=== PATIENT | female | born 1955 | race Two or more races ===

== ENCOUNTER 2024-02-13 23:51 | Emergency (ER) | payer OTHER, MEDICAID ==
[~2024-02-13] VITALS: Ht 165.1 cm; Wt 86.4 kg
[2024-02-14 00:25] VITALS: PULSE 83; RESP 16; TEMP 98.9; O2SAT 100
[2024-02-14] MEDS ORDERED: HYDR-4902 PO (00:39)
[2024-02-14] MEDS ORDERED: AMOX875T4 PO (00:39)
--- NOTE | 2024-02-14 00:40 | ED.PDOC ---
Musculoskeletal HPI Comments 68-year-old female presents to ER with complaints of right knee pain x3 days. Patient with PMH significant for previous right knee fracture and neuropathy presents via EMS reporting she started experiencing right knee pain/swelling to right knee three days ago after hitting her right knee against a car door. She rates her current pain a 9/10 to right knee present with palpation/movement only, denying any pain at rest. Denies use of medications for current symptoms. States she is able to walk with use of a walker at home. Patient is also requesting an antibiotic prescription due to a dry cough that she has had for three weeks. Denies fever, calf pain, hip pain, shortness of breath or any further symptoms/complaints Chief Complaint: Lower Extremity Time Seen by MD: 00:07 Primary Care Provider: UNKNOWN Reviewed Notes: Nurses Notes, Medications, Allergies Allergies: Coded Allergies: NO KNOWN ALLERGIES (Unverified , 02/14/24) Home Meds Active Scripts Hydrocodone-Acetaminophen (Hydrocodone Bitartrate/AC 5-325 mg) 1 Tab Tab, 1 TAB PO Q6HPRN, #10 TAB 0 Refills Prov:ROMAIN JONES 02/14/24 Amoxicillin & Pot Clavulanate (Amoxicillin/Potassium Cla) 875 Mg Tab, 1 TAB PO BID for 7 Days, #14 TAB 0 Refills Prov:ROMAIN JONES 02/14/24 Information Source: Patient Mode of Arrival: EMS Past Medical History PAST MEDICAL HISTORY: Arthritis (RHEUMATOID) Past Medical History (Other): RIGHT KNEE FRACTURE-MARCH 2023 BRONCHITIS Surgical History: Hysterectomy Surgical History (Other): RIGHT KNEE SURGERY-MARCH 2023 Cervical spine surgery Family History Family History: Unknown Social History Smoker: Cigarettes, Less Than 1 Pack/Day Alcohol: Denies ETOH Use Drugs: Denies Drug Use Lives In: Home Constitutional: denies: chills, diaphoresis, fatigue, fever, malaise, sweats, weakness, others EENTM: denies: blurred vision, double vision, ear bleeding, ear discharge, ear drainage, ear pain, ear ringing, eye pain, eye redness, hearing loss, mouth pain, mouth swelling, nasal discharge, nose bleeding, nose congestion, nose pain, photophobia, tearing, throat pain, throat swelling, voice changes, others Respiratory: denies: cough, hemoptysis, orthopnea, SOB at rest, shortness of breath, SOB with excertion, stridor, wheezing, others Cardiovascular: denies: chest pain, dizzy spells, diaphoresis, Dyspnea on exe rtion, edema, irregular heart beat, left arm pain, lightheadedness, palpitations, PND, syncope, others Gastrointestinal: denies: abdomen distended, abdominal pain, blood streaked bowels, constipated, diarrhea, dysphagia, difficulty swallowing, hematemesis, melena, nausea, poor appetite, poor fluid intake, rectal bleeding, rectal pain, vomiting, others Genitourinary: denies: abnormal vagina bleeding, burning, dyspareunia, dysuria, flank pain, frequency, hematuria, incontinence, pain, , vagina discharge, urgency, others Neurological: reports: others (As in HPI) Musculoskeletal: reports: others (As in HPI) Integumetry: reports: others (As in HPI) Allergic/Immunocompromised: denies: Difficulty Healing, Frequent Infections, Hives, Itching, others Hematologic/Lymphatic: denies: anemia, blood clots, easy bleeding, easy bruising, swollen glands, others Endocrine: denies: excessive hunger, excessive sweating, excessive thirst, excessive urination, flushing, intolerance to cold, intolerance to heat, unexplained weight gain, unexplained weight loss, others Psychiatric: denies: anxiety, bipolar disorder, depression, hopeless, panic d isorder, schizophrenia, sleepless, suicidal, others Physical Exam General Appearance: No Apparent Distress, Obese HEENT: PERRL/EOMI Neck: Full Range of Motion, Non-Tender, Normal Respiratory: Chest Non-Tender, Lungs Clear, No Accessory Muscle Use, No Respiratory Distress, Normal Breath Sounds Cardiovascular: No Murmur, No Gallop, Regular Rate/Rhythm Breast Exam: Deferred Gastrointestinal: NOT DONE Genitalia: Deferred Pelvic: Deferred Rectal: Deferred Extremities: No calf tenderness, Normal capillary refill Musculoskeletal : Extremity Location: Knee (TTP/mild swelling noted to right anterior knee. Scar noted from previous right knee surgery. No deformity/further skin changes appreciated. No TTP to right hip noted. Pulses intact. Gait slowed with use of assistance) Neurologic: Alert, No Motor Deficits, Normal Affect, Normal Mood, No Sensory Deficits Cerebellar Function: Normal Reflexes: Normal Skin: Dry, Normal Color, Warm Peripheral Pulses: 2+ dorsalis pedis (R), 2+ dorsalis pedis (L) Lymphatic: No Adenopathy Was a procedure done? Was a procedure done?: No Sedation Sedation?: No Differential Diagnosis EXT Differential Diagnosis: Fracture, Dislocation, Neurovascular injury X-Ray, Labs, Meds, VS Vital Signs Date Time Temp Pulse Resp B/P (MAP) Pulse Ox O2 Delivery O2 Flow Rate FiO2 02/14/24 01:25 80 16 111/56 02/14/24 00:53 83 16 111/56 02/14/24 00:25 98.9 83 16 111/56 (74) 98 98.9 02/14/24 00:25 83 16 100 Room Air* 0 21 02/14/24 00:03 97.5 83 16 111/56 (74) 100 Current Medications Medications (Trade) Dose Ordered Sig/Andria Route Start Time Stop Time Status Last Admin Morphine Sulfate 2 mg ONCE ONCE IM 02/14/24 00:45 02/14/24 00:46 DC 02/14/24 00:53 Ondansetron HCl (Zofran Po) 4 mg ONCE ONCE PO 02/14/24 00:45 02/14/24 00:46 DC 02/14/24 00:52 PATIENT: MARICEL SALMONT: [id number]: [id number] : 1955 LOC: ER ROOM / BED: / AGE / SEX: 68 / F ADM STATUS: REG ER SERVICE 0002 ORDERING PHYSICIAN: ROMAIN JONES PROCEDURE(s): RKN3 - R KNEE 3V XRAY REASON: Pain and swelling ORDER NUMBER(s): [id number], ACCESSION NUMBER(s): [id number] CLINICAL INDICATION: Pain and swelling right knee TECHNIQUE: XY R KNEE 3V XRAY Comparison: None FINDINGS/IMPRESSION: There is no evidence of acute fracture or dislocation. Bony demineralization. Mild tricompartment osteoarthritis with tricompartment osteophyte formation and mild medial compartment joint space narrowing The alignment is anatomical. There is no radiopaque foreign body. ATED BY: CHILO RODRIGUEZ MD DICTATED DATE/TIME: 02/14/24201 SIGNED BY: CHILO RODRIGUEZ MD SIGNED DATE/TIME: 02/14/24 0202 CC: Right knee x-ray reviewed Patient neurovascularly intact Morphine 2 mg IM ordered Zofran 4 mg p.o. ordered Patient in no distress and reported improvement in symptoms prior to discharge Advised on use of walker at all times Advised to follow up with PCP and orthopedics in 1-2 days Patient verbalized understanding and agreeable with current plan of care Advised to return to ER immediately if symptoms worsen Images Reviewed?: Images reviewed and evaluated by me Time of 1ST Reevaluation: 00:12 Reevaluation 1ST: N/A Patient Education/Counseling: Diagnosis, Treatment, Prognosis, Need For Follow Up Family Education/Counseling: No Family Present Departure 1 Departure Time of Disposition: 00:32 Impression: Primary Impression: Contusion of right knee Qualified Codes: S80.01XA - Contusion of right knee, initial encounter Additional Impressions: Acute bronchitis Qualified Codes: J20.9 - Acute bronchitis, unspecified Arthritis of knee, right Disposition: 01 HOME / SELF CARE / HOMELESS Condition: Stable e-Prescriptions Hydrocodone-Acetaminophen (Hydrocodone Bitartrate/AC 5-325 mg) 1 Tab Tab 1 TAB PO Q6HPRN, #10 TAB 0 Refills Prov: ROMAIN JONES 02/14/24 Amoxicillin & Pot Clavulanate (Amoxicillin/Potassium Cla) 875 Mg Tab 1 TAB PO BID for 7 Days, #14 TAB 0 Refills Prov: ROMAIN JONES 02/14/24 Discharged With: Significant Other Critical Care Note Critical Care Time?: No Stability Stability form required: No Heart Score Heart Score: Heart Score Response (Comments) Value History N/A 0 EKG N/A 0 Age N/A 0 Risk Factors N/A 0 Troponin N/A 0 Total 0 ROMAIN JONES Feb 14, 2024 00:40
[2024-02-14] MEDS: ONDANSETRON ODT 4 MG TAB PO ONE (00:52)
[2024-02-14] MEDS: MORPHINE SULFATE INJ 2 MG/ml SYRG IM ONE (00:53)
[2024-02-14 01:25] VITALS: BP 111/56; PULSE 80; RESP 16
--- NOTE | 2024-02-14 02:05 | DVH ---
CLINICAL INDICATION: Pain and swelling right knee TECHNIQUE: XY R KNEE 3V XRAY Comparison: None FINDINGS/IMPRESSION: There is no evidence of acute fracture or dislocation. Bony demineralization. Mild tricompartment osteoarthritis with tricompartment osteophyte formation and mild medial compartme nt joint space narrowing The alignment is anatomical. There is no radiopaque foreign body.
== END 2024-02-14 02:10 | disposition home or self-care (01) ==
LOC: ER 23:51 → EDBD 23:51 → ER 02-14 02:10
DX: S80.01XA Contusion of right knee, initial encounter (principal); J20.9 Acute bronchitis, unspecified; M17.11 Unilateral primary osteoarthritis, right knee; F17.210 Nicotine dependence, cigarettes, uncomplicated; Z90.710 Acquired absence of both cervix and uterus; Z98.890 Other specified postprocedural states; Z79.899 Other long term (current) drug therapy; W22.8XXA Striking against or struck by other objects, initial encounter; Y93.89 Activity, other specified; Y92.89 Other specified places as the place of occurrence of the external cause; Y99.8 Other external cause status
CPT/HCPCS: 73562; 96372; 99283; J2270; Q0162

== ENCOUNTER 2024-03-10 13:38 | Inpatient (IN) | payer OTHER, MEDICAID ==
[~2024-03-10] VITALS: Ht 165.1 cm; Wt 93.2 kg
[~2024-03-10 13:38] MED LIST: AMOX875T4 PO; HYDR-4902 PO
--- NOTE | 2024-03-10 14:43 | DVH ---
XY CHEST TWO VIEWS ROUTINE CLINICAL HISTORY: cough/sob COMPARISON: None TECHNIQUE: Frontal and lateral view of the chest was obtained FINDINGS: Lines and Tubes: None Lungs: Patchy left-sided and curvilinear bilateral mid and lower lung zone pulmonary opacities. Bilat eral peribronchial cuffing. Pleura: No effusion. No pneumothorax. Cardiomediastinal contours: Unremarkable Bones: No acute osseous abnormality. IMPRESSION: 1. Findings most consistent with atypical infection versus reactive airways disease. Needs clinical c orrelation. HS:Y
[2024-03-10 15:12] LABS: Basophils # (auto) 0 10 ^3/uL (0-0.2); Basophils % (auto) 0.6 % (0.0-2.0); Eosinophils # (auto) 0.1 10 ^3/uL (0-0.8); Eosinophils % (auto) 1.9 % (0.0-7.0); Hematocrit 37.8 % (36.0-46.0); Hemoglobin 12.9 g/dL (12.2-16.2); Lymphocytes # (auto) 1.3 10 ^3/uL (0.4-5.4); Lymphocytes % (auto) 27.2 % (10.0-50.0); Mean Corpuscular Hemoglobin 31.7 pg (28.0-32.0); Mean Corpuscular Hgb Conc. 34.2 g/dL (32.0-36.0); Mean Corpuscular Volume 92.8 fL (80.0-100.0); Monocytes # (auto) 0.4 10 ^3/uL (0-1.3); Monocytes % (auto) 7.7 % (0.0-12.0); Neutrophils # (auto) 2.9 10 ^3/uL (1.6-8.6); Neutrophils % (auto) 62.6 % (37.0-80.0); Nucleated Red Blood Cells % 0.2 %; Platelet Count (auto) 174 10^3/uL (140-450); Red Blood Cells 4.07 10^6/uL (4.0-5.20); Red Cell Distribution Width 13.6 % (11.8-14.3); White Blood Cell 4.6 10^3/uL (4.4-10.8)
[2024-03-10 15:34] LABS: Alanine Aminotransferase 16 U/L (7-40); Albumin 4.1 g/dL (3.2-4.8); Alkaline Phosphatase 98 U/L (46-116); Anion Gap 6 (5-15); Aspartate Aminotransferase 19 U/L (13-40); BUN/Creatinine Ratio 14.6 (10.0-20.0); Bilirubin, Total 0.3 mg/dL (0.2-1.0); Blood Urea Nitrogen 15 mg/dL (9-23); Calcium 9.6 mg/dL (8.7-10.4); Carbon Dioxide 30 mmol/L (20-31); Chloride 103 mmol/L (98-107); Potassium 4.2 mmol/L (3.5-5.1); Sodium 139 mmol/L (136-145); Total Protein 6.4 g/dL (5.7-8.2)
[2024-03-10 15:41] LABS: Glucose 124 mg/dL (74-106)
--- NOTE | 2024-03-10 15:58 | ED.PDOC ---
SOB-HPI HPI Comments 68-year-old female with a history of asthma, gout, rheumatoid arthritis and diabetes presents with a chief complaint of a nonproductive cough, myalgia, malaise, not eating well nor feeling like her usual self for the last three days Unable to get adequate relief with home medications Denies unintentional weight loss Denies persistent chest pain, shortness of breath, leg swelling Denies history of pneumonia Denies recent international travel Chief Complaint: Cough Time Seen by MD: 15:37 Primary Care Provider: GIL Reviewed notes: Nurses Notes, Medications, Allergies Information Source: Patient Mode of Arrival: EMS Past Medical History PAST MEDICAL HISTORY: Arthritis Surgical History: Hysterectomy Family History Family History: Reviewed,noncontributory to illness, Unknown Social History Smoker: Cigarettes, Less Than 1 Pack/Day Alcohol: Denies ETOH Use Drugs: Denies Drug Use Lives In: Home All Other Systems: Reviewed and Negative (per hpi) Physical Exam General Appearance: Normal HEENT: Normal ENT Inspection, Pharynx Normal, TMs Normal Neck: Full Range of Motion, Non-Tender, Normal, Normal Inspection Respiratory: Chest Non-Tender, Lungs Clear, No Accessory Muscle Use, No Respiratory Distress, Normal Breath Sounds Cardiovascular: No Edema, No JVD, No Murmur, No Gallop, Normal Peripheral Pulses, Regular Rate/Rhythm Breast Exam: Deferred Gastrointestinal: No Organomegaly, Non Tender, No Pulsatile Mass, Normal Bowel Sounds, Soft Genitalia: Deferred Pelvic: Deferred Rectal: Deferred Extremities: No calf tenderness, Normal capillary refill, Normal inspection, Normal range of motion, Non-tender, No pedal edema Musculoskeletal : Apperance: Normal Neurologic: Alert, licensed retail supervisor II-XII nml as Tested, No Motor Deficits, Normal Affect, Normal Mood, No Sensory Deficits Cerebellar Function: Normal Reflexes: Normal Skin: Dry, Normal Color, Warm Lymphatic: No Adenopathy Was a procedure done? Was a procedure done?: No Differential Dx Differential Diagnosis: Asthma, Bronchitis, Pneumonia X-Ray, Labs, Meds, VS Vital Signs Date Time Temp Pulse Resp B/P (MAP) Pulse Ox O2 Delivery O2 Flow Rate FiO2 03/10/24 15:37 85 20 94 Room Air 03/10/24 15:37 99.0 85 20 127/79 (95) 94 99.0 03/10/24 13:38 20 100 Room Air* 0 21 03/10/24 13:38 99.0 85 20 127/79 (95) 100 Lab Test 03/10/24 14:36 Range/Units White Blood Count 4.6 4.4-10.8 10^3/uL Red Blood Count 4.07 4.0-5.20 10^6/uL Hemoglobin 12.9 12.2-16.2 g/dL Hematocrit 37.8 36.0-46.0 % Mean Corpuscular Volume 92.8 80.0-100.0 fL Mean Corpuscular Hemoglobin 31.7 28.0-32.0 pg Mean Corpuscular Hemoglobin Concent 34.2 32.0-36.0 g/dL Red Cell Distribution Width 13.6 11.8-14.3 % Platelet Count 174 140-450 10^3/uL Mean Platelet Volume 8.1 6.9-10.8 fL Neutrophils (%) (Auto) 62.6 37.0-80.0 % Lymphocytes (%) (Auto) 27.2 10.0-50.0 % Monocytes (%) (Auto) 7.7 0.0-12.0 % Eosinophils (%) (Auto) 1.9 0.0-7.0 % Basophils (%) (Auto) 0.6 0.0-2.0 % Neutrophils # (Auto) 2.9 1.6-8.6 10 ^3/uL Lymphocytes # (Auto) 1.3 0.4-5.4 10 ^3/uL Monocytes # (Auto) 0.4 0-1.3 10 ^3/uL Eosinophils # (Auto) 0.1 0-0.8 10 ^3/uL Basophils # (Auto) 0 0-0.2 10 ^3/uL Nucleated Red Blood Cells 0.2 % Sodium Level 139 136-145 mmol/L Potassium Level 4.2 3.5-5.1 mmol/L Chloride Level 103 98-107 mmol/L Carbon Dioxide Level 30 20-31 mmol/L Anion Gap 6 5-15 Blood Urea Nitrogen 15 9-23 mg/dL Creatinine 1.03 H 0.550-1.02 mg/dL Glomerular Filtration Rate Calc 59 >90 mL/min BUN/Creatinine Ratio 14.6 10.0-20.0 Serum Glucose 124 H 74-106 mg/dL Calcium Level 9.6 8.7-10.4 mg/dL Total Bilirubin 0.3 0.2-1.0 mg/dL Aspartate Amino Transferase (AST) 19 13-40 U/L Alanine Aminotransferase (ALT) 16 7-40 U/L Alkaline Phosphatase 98 46-116 U/L Troponin I High Sensitivity 4 </=34 ng/L B-Type Natriuretic Peptide 103.87 0-100 pg/mL Total Protein 6.4 5.7-8.2 g/dL Albumin 4.1 3.2-4.8 g/dL PATIENT: MARICEL SALMONT: [id number]: [id number] : 1955 LOC: ER ROOM / BED: / AGE / SEX: 68 / F ADM STATUS: REG ER SERVICE 12 ORDERING PHYSICIAN: NARCISO REED ELECTRIC FREIGHT CAR OPERATOR PROCEDURE(s): CXR2 - CHEST TWO VIEWS ROUTINE REASON: cough/sob ORDER NUMBER(s): [id number], ACCESSION NUMBER(s): [id number] XY CHEST TWO VIEWS ROUTINE CLINICAL HISTORY: cough/sob COMPARISON: None TECHNIQUE: Frontal and lateral view of the chest was obtained FINDINGS: Lines and Tubes: None Lungs: Patchy left-sided and curvilinear bilateral mid and lower lung zone pulmonary opacities. Bilateral peribronchial cuffing. Pleura: No effusion. No pneumothorax. Cardiomediastinal contours: Unremarkable Bones: No acute osseous abnormality. IMPRESSION: 1. Findings most consistent with atypical infection versus reactive airways disease. Needs clinical correlation. HS:Y ATED BY: ALICIA KELLY DO DICTATED DATE/TIME: 03/10/241440 SIGNED BY: ALICIA KELLY DO SIGNED DATE/TIME: 03/10/241440 CC: X-Ray, Labs, Meds, VS Comment 68-year-old female with a history of asthma, gout, rheumatoid arthritis and diabetes presents with a chief complaint of a nonproductive cough, myalgia, malaise, not eating well nor feeling like her usual self for the last three days History obtained from patient Labs imaging ordered and chest x-ray shows Findings most consistent with atypical infection versus reactive airways disease. Needs clinical correlation. Curb score 1 Based on age risk factors we will consult with the hospitalist for admission patient will likely be admitted for IV antibiotics Stable at this time Time of 1ST Reevaluation: 15:54 Reevaluation 1ST: Unchanged Patient Education/Counseling: Diagnosis, Treatment Family Education/Counseling: Diagnosis, Treatment Departure 1 Departure Time of Disposition: 15:56 Impression: Primary Impression: Atypical pneumonia Disposition: 09 ADMITTED INPATIENT Condition: Fair Critical Care Note Critical Care Time?: No Stability Stability form required: No Heart Score Heart Score: Heart Score Response (Comments) Value History Slightly Suspicious 0 EKG N/A 0 Age >65 2 Risk Factors 1 or 2 risk factors 1 Troponin N/A 0 Total 3 NARCISO REED ELECTRIC FREIGHT CAR OPERATOR Mar 10, 2024 15:58
[2024-03-10] MEDS ORDERED: DOCUSATE SOD 100 MG CAP PO PRN (16:15)
[2024-03-10] MEDS ORDERED: ACETAMINOPHEN 325 MG TAB PO PRN (16:15)
[2024-03-10] MEDS ORDERED: ONDANSETRON HCL 4 MG/2 ML VIAL IV PRN (16:15)
[2024-03-10] MEDS ORDERED: PROMETHAZINE-DM 5 ML ORAL SYRUP PO PRN (16:15)
--- NOTE | 2024-03-10 16:35 | DVHHP2 ---
History of Present Illness Reason for Visit: Atypical pneumonia History of Present Illness The patient is a 68-year-old female with past medical history of arthritis, gout, DM, RA, and neuropathy who presented to [facility] ED with complaint of nonproductive cough. Patient reports symptoms progressively get worse with malaise, weakness, unrelieved with home medication, getting worse today that prompted this visit. Patient was seen and evaluated in the ED, laboratory data shows WBC 4.6, platelets 174, sodium 139, potassium 4.2, BUN 15, creatinine 1.03, glucose 124, BNP 103.87, troponin 4, blood pressure 127/79, heart rate 85, temperature 99.0 F, O2 saturation 99% room air. Chest x-ray revealing atypical infection versus reactive airway disease, need clinical correlation. Please see medication orders section in the computer. On my assessment, patient denied chest pain, no headache, no dizziness, no diaphoresis, no shortness of breaths, no nausea, no vomiting, no fever, no chills. Patient was admitted for further evaluation and medical management. Past Medical History Arthritis, gout, DM, rheumatoid arthritis, neuropathy. Past Surgical History Hysterectomy, multiple bilateral leg surgery, section. Family History Reviewed, noncontributory to the management of this case. Past Social History The patient lives at home, smokes cigarettes less than 1 pack per day, denies alcohol or illicit drugs abuse. Review of Systems Constitutional: Yes: Weakness, Malaise; No: Fever, Chills, Sweats, Other Eyes: No: Pain, Vision change, Conjunctivae inflammation, Eyelid inflammation, Other, Redness ENT: No: Ear pain, Ear discharge, Nose pain, Nose discharge, Nose congestion, Mouth pain, Mouth swelling, Throat pain, Throat swelling, Other Respiratory: Cough (Nonproductive); No: Dry, Shortness of breath, SOB with excertion, Wheezing, Hemoptysis, Pleuritic Pain, Sputum, Wheezing, Other Cardiovascular: No: Chest Pain, Palpitations, Orthopnea, Paroxysmal Noc. Dyspnea, Edema, Lt Headedness, Other Gastrointestinal: No: Nausea, Vomiting, Abdominal Pain, Diarrhea, Constipation, Melena, Hematochezia, Other Genitourinary: No Dysuria, No Frequency, No Incontinence, No Hematuria, No Retention, No Other Musculoskeletal: No: other, neck pain, shoulder pain, arm pain, back pain, hand pain, leg pain, foot pain Skin: No: Rash, Lesions, Jaundice, Bruising, Other Neurological: No: Weakness, Numbness, Incoordination, Change in speech, Confusion, Seizures, Other Allergies: Coded Allergies: NO KNOWN ALLERGIES (Unverified , 02/14/24) Medications Current Medications Medications Dose Ordered Sig/Andria Route Start Time Stop Time Status Last Admin Dose Admin Azithromycin 250 ml @ 125 mls/hr DAILY IV 03/11/24 10:00 Future Hold Promethazine HCl/ Dextromethorphan 5 ml Q4HP PRN PO 03/10/24 16:15 Famotidine 20 mg DAILY IV 03/11/24 10:00 Sodium Chloride 1,000 ml @ 60 mls/hr [id number] IV 03/10/24 16:15 Acetaminophen/ Hydrocodone Bitart 1 tab Q4HP PRN PO 03/10/24 16:15 Ondansetron HCl 4 mg Q4HP PRN IV 03/10/24 16:15 Docusate Sodium 100 mg BIDPRN PRN PO 03/10/24 16:15 Acetaminophen 650 mg Q6HP PRN PO 03/10/24 16:15 Exam Vital Signs Vital Signs Date Time Temp Pulse Resp B/P (MAP) Pulse Ox O2 Delivery O2 Flow Rate FiO2 03/10/24 15:37 85 20 94 Room Air 03/10/24 15:37 99.0 127/79 (95) 99.0 03/10/24 13:38 0 21 General Appearance: Alert, Oriented X3, Cooperative, No acute distress HEENT: Atraumatic, PERRLA, EOMI, Mucous membr. moist/pink Respiratory: Normal air movement, Other (Diminished breath sounds) Cardiovascular: Regular rate, Normal S1, Normal S2, No murmurs Abdominal: Normal bowel sounds, Soft, No tenderness, No hepatospenomegaly, No masses Extremities: No clubbing, No cyanosis, No edema, Normal pulses, No tenderness/swelling Skin: No rashes, No breakdown, No significant lesion Neuro: Normal speech, Normal tone, Sensation intact, Cranial nerves 3-12 NL, Reflexes 2+, Other (Generalized weakness) Psych/Mental Status: Mental status NL, Mood NL Labs/Xrays Labs Test 03/10/24 14:36 Range/Units White Blood Count 4.6 4.4-10.8 10^3/uL Red Blood Count 4.07 4.0-5.20 10^6/uL Hemoglobin 12.9 12.2-16.2 g/dL Hematocrit 37.8 36.0-46.0 % Mean Corpuscular Volume 92.8 80.0-100.0 fL Mean Corpuscular Hemoglobin 31.7 28.0-32.0 pg Mean Corpuscular Hemoglobin Concent 34.2 32.0-36.0 g/dL Red Cell Distribution Width 13.6 11.8-14.3 % Platelet Count 174 140-450 10^3/uL Mean Platelet Volume 8.1 6.9-10.8 fL Neutrophils (%) (Auto) 62.6 37.0-80.0 % Lymphocytes (%) (Auto) 27.2 10.0-50.0 % Monocytes (%) (Auto) 7.7 0.0-12.0 % Eosinophils (%) (Auto) 1.9 0.0-7.0 % Basophils (%) (Auto) 0.6 0.0-2.0 % Neutrophils # (Auto) 2.9 1.6-8.6 10 ^3/uL Lymphocytes # (Auto) 1.3 0.4-5.4 10 ^3/uL Monocytes # (Auto) 0.4 0-1.3 10 ^3/uL Eosinophils # (Auto) 0.1 0-0.8 10 ^3/uL Basophils # (Auto) 0 0-0.2 10 ^3/uL Nucleated Red Blood Cells 0.2 % Sodium Level 139 136-145 mmol/L Potassium Level 4.2 3.5-5.1 mmol/L Chloride Level 103 98-107 mmol/L Carbon Dioxide Level 30 20-31 mmol/L Anion Gap 6 5-15 Blood Urea Nitrogen 15 9-23 mg/dL Creatinine 1.03 H 0.550-1.02 mg/dL Glomerular Filtration Rate Calc 59 >90 mL/min BUN/Creatinine Ratio 14.6 10.0-20.0 Serum Glucose 124 H 74-106 mg/dL Calcium Level 9.6 8.7-10.4 mg/dL Total Bilirubin 0.3 0.2-1.0 mg/dL Aspartate Amino Transferase (AST) 19 13-40 U/L Alanine Aminotransferase (ALT) 16 7-40 U/L Alkaline Phosphatase 98 46-116 U/L Troponin I High Sensitivity 4 </=34 ng/L B-Type Natriuretic Peptide 103.87 0-100 pg/mL Total Protein 6.4 5.7-8.2 g/dL Albumin 4.1 3.2-4.8 g/dL PATIENT: JAIR SALMON ACCT: [id number] UNIT: [id number] : 1955 LOC: ER ROOM / BED: / AGE / SEX: 68 / F ADM STATUS: REG ER SERVICE 1413 ORDERING PHYSICIAN: NARCISO REED NP PROCEDURE(s): CXR2 - CHEST TWO VIEWS ROUTINE REASON: cough/sob ORDER NUMBER(s): [id number], ACCESSION NUMBER(s): [id number] XY CHEST TWO VIEWS ROUTINE CLINICAL HISTORY: cough/sob COMPARISON: None TECHNIQUE: Frontal and lateral view of the chest was obtained FINDINGS: Lines and Tubes: None Lungs: Patchy left-sided and curvilinear bilateral mid and lower lung zone pulmonary opacities. Bilateral peribronchial cuffing. Pleura: No effusion. No pneumothorax. Cardiomediastinal contours: Unremarkable Bones: No acute osseous abnormality. IMPRESSION: 1. Findings most consistent with atypical infection versus reactive airways disease. Needs clinical correlation. Assessment/Plan Assessment/Plan Atypical pneumonia Nonproductive cough Generalized weakness Plan 1. Admit to telemetry unit 2. Breathing treatment 3. Pain control management 4. IV antibiotic management 5. Management of fluids and electrolytes 6. Consultation for pulmonology 7. Diagnostic test chest x-ray 8. DVT prophylaxis-on SCDs 9. Repeat labs CBC, CMP in a.m. 10. Home medication reviewed and reconciled 11. Continue with current medical management 12. Treatment plan discussed with patient and RN. Patient verbalized understanding. Plan discussed with: Patient, Other (RN) My Orders Orders - SHELBIE WHITTINGTON DNP Procedure Category Date Status Time Azithromycin 500mg/ PHA 03/10/24 In Process 250ml (Zithromax 50 16:15 Promethazine-Dm PHA 03/10/24 In Process (Phenergan-Dm) 16:15 *Consult CONS 03/10/24 Transmitted / 16:05 Famotidine Injection PHA 03/11/24 In Process (Pepcid Injection) 10:00 Allergies [facility] 03/10/24 In Process 16:05 Code Status CODE 03/10/24 Transmitted 16:05 Sodium Chloride 0.9% PHA 03/10/24 In Process 16:15 Oxygen Per Hour RT 03/10/24 Transmitted 16:05 Hydrocodone-Acet PHA 03/10/24 In Process 5/325mg Tab ([place] 16:15 Ondansetron Hcl PHA 03/10/24 In Process (Zofran) 16:15 Docusate Sodium PHA 03/10/24 In Process Capsule (Colace 16:15 Complete Blood Count LAB 03/11/24 Verified 04:00 Comprehensive LAB 03/11/24 Verified Metabolic Panel 04:00 Cardiac DIET 03/10/24 Transmitted Diet-2gna,Lofat,Lochol Dinner Condition: Fair [place] 03/10/24 In Process 16:05 Acetaminophen Tablet PHA 03/10/24 In Process (Tylenol Tablet) 16:15 Bedrest With Bathroom [facility] 03/10/24 In Process Privileg 16:05 Sequential [facility] 03/10/24 In Process Compression Device Azithromycin 500mg/ PHA 03/11/24 In Process 250ml (Zithromax 50 10:00 Admit ADMIT 03/10/24 Verified 16:33 Nitroglycerin [facility] 03/10/24 Verified Sublingual (Ntrostat 16:45 Morphine Sulfate [facility] 03/10/24 Verified Injection 16:45 Notify Md Of Changes [facility] 03/10/24 Verified From Base 16:33 Instructor Hairspring For [facility] 03/10/24 Verified 24 Hours 16:33 Emergency Dysrhythmia [facility] 03/10/24 Verified Protocol 16:33 Rhythm Strips Once [facility] 03/10/24 Verified Every Shift 16:33 Oxygen By Nasal RT 03/10/24 Verified Cannula 16:33 Problem List: (1) Atypical pneumonia (2) Nonproductive cough (3) Generalized weakness Date of Service: Mar 10, 2024 Billing Provider: SHELBIE WHITTINGTON DNP Common Visit Codes: [id number] INP/OBS CARE (HIGH) SHELBIE WHITTINGTON DNP Mar 10, 2024 16:35
[2024-03-10] MEDS ORDERED: MORPHINE SULFATE INJ 2 MG/ml SYRG IV PRN (16:45)
[2024-03-10] MEDS ORDERED: NITROGLYCERIN 0.4 MG SL TAB SL PRN (16:45)
[2024-03-10] MEDS: FAMOTIDINE (10MG/ML) 2ML VL IV ONE (17:25)
[2024-03-10] MEDS: DexAMETHasone SOD PHOS 10MG/1ML VIAL INJ IM ONE (17:26)
[2024-03-10] MEDS: cefTRIAXone SOD 1,000 MG VL IM ONE (17:26)
[2024-03-10] MEDS: SODIUM CHLORIDE 0.9% 1,000 ML IV SCH (17:27)
[2024-03-10] MEDS: PROMETHAZINE-DM 5 ML ORAL SYRUP PO ONE (17:27)
[2024-03-10] MEDS: AZITHROMYCIN 500MG/ 250ML 250 ML IV ONE (17:27)
--- NOTE | 2024-03-10 19:21 | DVHINCON2 ---
Date of service: Mar 10, 2024 Referring Physician Dileep Randolph DNP Reason for Consultation Atypical infection versus airways disease. History of Present Illness A 68-year-old woman with past medical history of arthritis, gout, DM, rheumatoid arthritis, and neuropathy who presents to ED today with complaint of nonproductive cough. Patient reports symptoms progressively got worse with malaise, weakness, unrelieved with home medication, getting worse today that prompted this visit. ED workup revealed WBC 4.6, platelets 174, sodium 139, potassium 4.2, BUN 15, creatinine 1.03, glucose 124, BNP 103.87, troponin 4. Blood pressure of 127/79, heart rate 85, temperature 99.0 F, O2 saturation 99% room air. Chest x-ray revealing atypical infection versus reactive airway disease. Patient denied chest pain, headache, dizziness, diaphoresis, shortness of breath, fever, N/V or any other associated symptoms. She was admitted for further care and pulmonary consultation is requested for evaluation and management d/t above findings. Review of Systems: 14-point review of systems negative unless otherwise noted above. Past Medical History: Arthritis, gout, DM, rheumatoid arthritis, neuropathy. Past Surgical History: Hysterectomy, multiple bilateral leg surgeries, section. Medications: Reviewed. Allergies: No known drug allergies. Family History: No family history of premature CAD. No family history of lung disorders. Social History: Smoker. Smokes cigarettes, less than 1 pack per day No alcohol or illicit drug use. Allergies: Coded Allergies: Gabapentin (Verified Allergy, Mild, 03/11/24) Pregabalin (Verified Allergy, Mild, 03/11/24) Home Meds Active Scripts Hydrocodone-Acetaminophen (Hydrocodone Bitartrate/AC 5-325 mg) 1 Tab Tab, 1 TAB PO Q6HPRN, #10 TAB 0 Refills Prov:ROMAIN JONES 02/14/24 Reported Medications Fluoxetine HCl (Fluoxetine) 60 Mg Tab, 60 MG PO, TAB 03/12/24 Furosemide (Lasix) 40 Mg Tab, 40 MG PO DAILY, TAB 03/12/24 Quetiapine Fumerate (Seroquel Xr) 50 Mg Tab, 1 TAB PO QPM, #30 TAB 2 Refills 03/12/24 Current Medications Current Medications Medications (Trade) Dose Ordered Sig/Andria Route PRN Reason Start Time Stop Time Status Last Admin Azithromycin 250 ml @ 125 mls/hr DAILY IV 12/10/24 10:00 Future Hold Promethazine HCl/ Dextromethorphan (Phenergan-Dm) 5 ml Q4HP PRN PO FOR COUGH 03/10/24 16:15 Famotidine (Pepcid Injection) 20 mg DAILY IV 03/11/24 10:00 Sodium Chloride 1,000 ml @ 60 mls/hr [id number] IV 03/10/24 16:15 03/10/24 17:27 Acetaminophen/ Hydrocodone Bitart ([place] 5/325MG Tab) 1 tab Q4HP PRN PO MODERATE PAIN (4-6 PAIN SCALE) 03/10/24 16:15 Ondansetron HCl (Zofran) 4 mg Q4HP PRN IV NAUSEA / VOMITING 03/10/24 16:15 Docusate Sodium (Colace Capsule) 100 mg BIDPRN PRN PO FOR CONSTIPATION 03/10/24 16:15 Acetaminophen (Tylenol Tablet) 650 mg Q6HP PRN PO PAIN SCALE 1-3 OR TEMP>100.4 03/10/24 16:15 Nitroglycerin (Ntrostat Sublingual) 0.4 mg Q5MINP PRN SL FOR CHEST PAIN 03/10/24 16:45 Morphine Sulfate 2 mg Q30M PRN IV FOR CHEST PAIN 03/10/24 16:45 Vital Signs Vital Signs Date Time Temp Pulse Resp B/P (MAP) Pulse Ox O2 Delivery O2 Flow Rate FiO2 03/10/24 15:37 85 20 94 Room Air 03/10/24 15:37 99.0 127/79 (95) 99.0 03/10/24 13:38 0 21 Physical Exam Gen.: Patient lying in bed in no apparent distress. Breathing on room air. Head: Normocephalic, atraumatic. Eyes: EOMI/PERRLA. Ears: Normal hearing. Normal anatomy. Neck/trachea: Trachea midline, supple. Nose: Normal external anatomy. Mouth: Moist mucous membranes. Chest: Decreased air entry bilaterally. No wheezing or rhonchi. Cardiovascular: Positive S1, positive S2. Regular rate and rhythm. Abdomen: Positive bowel sounds in all 4 quadrants. Soft, non-tender, non- distended. : Deferred. Rectal: Deferred. Skin: Warm, dry. Intact. Extremities: 2+ radial pulses bilaterally. No lower extremity edema. Neuro: Awake, alert, oriented x3. No gross motor or sensory deficits. Cranial nerves II through XII intact. Gait not assessed. Labs/Diagnostic Data Labs Test 03/10/24 14:36 Range/Units White Blood Count 4.6 4.4-10.8 10^3/uL Red Blood Count 4.07 4.0-5.20 10^6/uL Hemoglobin 12.9 12.2-16.2 g/dL Hematocrit 37.8 36.0-46.0 % Mean Corpuscular Volume 92.8 80.0-100.0 fL Mean Corpuscular Hemoglobin 31.7 28.0-32.0 pg Mean Corpuscular Hemoglobin Concent 34.2 32.0-36.0 g/dL Red Cell Distribution Width 13.6 11.8-14.3 % Platelet Count 174 140-450 10^3/uL Mean Platelet Volume 8.1 6.9-10.8 fL Neutrophils (%) (Auto) 62.6 37.0-80.0 % Lymphocytes (%) (Auto) 27.2 10.0-50.0 % Monocytes (%) (Auto) 7.7 0.0-12.0 % Eosinophils (%) (Auto) 1.9 0.0-7.0 % Basophils (%) (Auto) 0.6 0.0-2.0 % Neutrophils # (Auto) 2.9 1.6-8.6 10 ^3/uL Lymphocytes # (Auto) 1.3 0.4-5.4 10 ^3/uL Monocytes # (Auto) 0.4 0-1.3 10 ^3/uL Eosinophils # (Auto) 0.1 0-0.8 10 ^3/uL Basophils # (Auto) 0 0-0.2 10 ^3/uL Nucleated Red Blood Cells 0.2 % Sodium Level 139 136-145 mmol/L Potassium Level 4.2 3.5-5.1 mmol/L Chloride Level 103 98-107 mmol/L Carbon Dioxide Level 30 20-31 mmol/L Anion Gap 6 5-15 Blood Urea Nitrogen 15 9-23 mg/dL Creatinine 1.03 H 0.550-1.02 mg/dL Glomerular Filtration Rate Calc 59 >90 mL/min BUN/Creatinine Ratio 14.6 10.0-20.0 Serum Glucose 124 H 74-106 mg/dL Calcium Level 9.6 8.7-10.4 mg/dL Total Bilirubin 0.3 0.2-1.0 mg/dL Aspartate Amino Transferase (AST) 19 13-40 U/L Alanine Aminotransferase (ALT) 16 7-40 U/L Alkaline Phosphatase 98 46-116 U/L Troponin I High Sensitivity 4 </=34 ng/L B-Type Natriuretic Peptide 103.87 0-100 pg/mL Total Protein 6.4 5.7-8.2 g/dL Albumin 4.1 3.2-4.8 g/dL Assessment Impression: Atypical pneumonia Cough, acute Generalized weakness Nicotine dependence Atelectasis Obesity, BMI 31.7 Rheumatoid arthritis Plan: Supplemental oxygen PRN Titrate to keep O2 sats above 92%. CXR reviewed, findings c/w atypical infection versus reactive airways disease. No pleural effusion or pneumothorax. Continue IV antibiotics Antitussive for cough Accu-Cheks for glycemic monitoring IV fluid hydration - NS at 60 ml/hr Smoking cessation discussed for greater than 10 minutes. Monitor renal function. Monitor electrolytes. Supplement as necessary. Monitor ins and outs. Diet and lifestyle modifications for weight reduction Obesity - complicates all care GI prophylaxis - Pepcid DVT prophylaxis -SCDs. Prognosis: Guarded given patient's multiple co-morbidities. Rest of plan per hospitalist and other consultants. Thank you, Dileep Randolph DNP, for allowing me to participate in this patient's care. Further recommendations will depend on the patient's clinical course. Please do not hesitate to contact me if you have any questions or concerns. This medical document was created using an electronic medical record system with [employer] dictation system. Although these documentations are being carefully reviewed, there may still be some phonetic and typographical changes. The errors are purely typographical, due to imperfection on the software program, and do not reflect any compromise in the patient's medical care. Plan discussed with: Patient, Other (RN, CAPRI Randolph) BREANNE SPAULDING MD Mar 10, 2024 19:21
[2024-03-10] MEDS ORDERED: DEXTROSE (50%) 50ML SYRG IV PRN (19:30)
[2024-03-10 20:30] VITALS: BP 163/64; PULSE 82; RESP 20; TEMP 99; O2SAT 94
[2024-03-10] MEDS: InsuLIN REG 1unit/0.01ml Soln (100units/ml) SC SCH (22:00)
[2024-03-10] MEDS: ACCU-CHEK COMFORT CURVE STRIP VI SCH (22:37)
[2024-03-10 22:55] VITALS: BP 154/68; PULSE 75; RESP 18; TEMP 98.1; O2SAT 97
[2024-03-11] VITALS (9 sets, daily range): BP systolic 105–168; BP diastolic 58–73; PULSE 64–98; RESP 16–20; TEMP 97.8–98.7; O2SAT 94–97
[2024-03-11 05:23] LABS: Basophils # (auto) 0 10 ^3/uL (0-0.2); Basophils % (auto) 0.4 % (0.0-2.0); Eosinophils # (auto) 0 10 ^3/uL (0-0.8); Hematocrit 37.2 % (36.0-46.0); Hemoglobin 12.6 g/dL (12.2-16.2); Lymphocytes # (auto) 1.8 10 ^3/uL (0.4-5.4); Lymphocytes % (auto) 45.5 % (10.0-50.0); Mean Corpuscular Hemoglobin 31.7 pg (28.0-32.0); Mean Corpuscular Volume 93.2 fL (80.0-100.0); Monocytes # (auto) 0.1 10 ^3/uL (0-1.3); Monocytes % (auto) 3.8 % (0.0-12.0); Neutrophils % (auto) 50.3 % (37.0-80.0); Nucleated Red Blood Cells % 0.3 %; Platelet Count (auto) 167 10^3/uL (140-450); Red Blood Cells 3.99 10^6/uL (4.0-5.20); Red Cell Distribution Width 13.5 % (11.8-14.3)
[2024-03-11 05:40] LABS: Alanine Aminotransferase 12 U/L (7-40); Alkaline Phosphatase 91 U/L (46-116); Anion Gap 7 (5-15); Aspartate Aminotransferase 20 U/L (13-40); BUN/Creatinine Ratio 12.6 (10.0-20.0); Bilirubin, Total 0.3 mg/dL (0.2-1.0); Blood Urea Nitrogen 14 mg/dL (9-23); Calcium 9.5 mg/dL (8.7-10.4); Carbon Dioxide 27 mmol/L (20-31); Chloride 102 mmol/L (98-107); Potassium 4.2 mmol/L (3.5-5.1); Sodium 136 mmol/L (136-145); Total Protein 6.6 g/dL (5.7-8.2)
[2024-03-11 05:53] LABS: Glucose 287 mg/dL (74-106)
[2024-03-11] MEDS ORDERED: AZITHROMYCIN 500MG/ 250ML 250 ML IV SCH (10:00)
[2024-03-11] MEDS: FAMOTIDINE (10MG/ML) 2ML VL IV SCH (10:24)
[2024-03-11] MEDS: ALBUTEROL SULF 2.5 MG/0.5ML(0.5%) NEB SOLN NEB PRN (12:31)
--- NOTE | 2024-03-11 12:48 | DVH ---
Procedure: CT CHEST WITHOUT CONTRAST Reason for study/Clinical History: 68 years old, Female; evaluate extent of Chronic interstitial jh g disease, hx RA. Comparison Study: None available at time of dictation. Exam Date: 03/11/2024 12:12 PM TECHNIQUE: Multidetector CT of the chest was performed from the lung apices to the upper abdomen with out the use of intravenous contract. Axial, coronal and sagittal multiplanar reformats were performed . Radiation dose Information: CT Dose: CTDI volume is 13.32 mGy. Dose-length product is 460.48 mGy*cm The dose indicators for CT are the volume computed Tomography (CT) dose Index (CTDIvol) and the dose Length product (DLP), and are measured in units of mGy and mGy-cm, respectively. These indicators are not patient dose, but values generated from the CT scanner acquisition factors. The report includes radiation exposure data for exposures received during this examination. FINDINGS: Lower neck: Normal thyroid. Lungs: Nodular consolidation in the left upper lung measuring up to 21 mm. Peribronchial thickening i n both lungs. Thin-walled cavitary lesion or cyst in the left lower lobe measuring up to 10 mm. 6 mm nodule along the right minor fissure. Atelectasis and scarring in the lung bases. Heart/Vascular Structures: Normal heart size. No pericardial effusion. Moderate coronary artery calci fications. Lymph Nodes: Subcentimeter mediastinal lymph nodes. Pleura: No pleural effusion or significant pneumothorax. Musculoskeletal: Advanced degenerative changes in the spine. Soft tissues: Normal. Upper abdomen: Limited portions of the upper abdomen are unremarkable. IMPRESSION: 1. Nodular consolidation in the left upper lobe measuring up to 21 mm. Differential includes infecti ous / inflammatory and neoplastic etiologies. Clinical correlation and continued follow-up is recomm ended. If there is high clinical concern consider further evaluation PET-CT and/ or CT-guided biopsy. Chronic parenchymal changes suggesting mild interstitial lung disease. Radiation optimization: All CT scans at this facility use at least one of these dose optimization edward hniques: Automated exposure control mA and/or kV adjustment per patient size (includes targeted exams where dose is matched to clinical indication) or iterative reconstruction. HS:Y
--- NOTE | 2024-03-11 13:40 | DVHPN2 ---
Reviewed: Care Plan, H&P, Labs, Medications, Previous Orders, Radiology Changes from previous H/P or p: No Changes Eyes: No Pain, No Vision change, No Conjunctivae inflammation, No Eyelid inflammation, No Other, No Redness ENT: No Ear pain, No Ear discharge, No Nose pain, No Nose discharge, No Nose congestion, No Mouth pain, No Mouth swelling, No Throat pain, No Throat swelling, No Other Cardiovascular: No Chest Pain, No Palpitations, No Orthopnea, No Paroxysmal Noc. Dyspnea, No Edema, No Lt Headedness, No Other Respiratory: Cough (Nonproductive); No Dry, No Shortness of breath, No SOB with excertion, No Wheezing, No Hemoptysis, No Pleuritic Pain, No Sputum, No Other Gastrointestinal: No Nausea, No Vomiting, No Abdominal Pain, No Diarrhea, No Constipation, No Melena, No Hematochezia, No Other Genitourinary: No Dysuria, No Frequency, No Incontinence, No Hematuria, No Retention, No Other Musculoskeletal: No other, No neck pain, No shoulder pain, No arm pain, No back pain, No hand pain, No leg pain, No foot pain Skin: No Rash, No Lesions, No Jaundice, No Bruising, No Other Objective Vitals Vital Signs Date Time Temp Pulse Resp B/P (MAP) Pulse Ox O2 Delivery O2 Flow Rate FiO2 03/11/24 12:53 98.7 98 20 162/66 97 21 98.7 03/11/24 12:32 Room Air* 0 Medications Current Medications Medications Dose Ordered Sig/Andria Route Start Time Stop Time Status Last Admin Dose Admin Azithromycin 250 ml @ 125 mls/hr DAILY IV 03/11/24 10:00 Hold Promethazine HCl/ Dextromethorphan 5 ml Q4HP PRN PO 03/10/24 16:15 Famotidine 20 mg DAILY IV 03/11/24 10:00 03/11/24 10:24 20 MG Sodium Chloride 1,000 ml @ 60 mls/hr [id number] IV 03/10/24 16:15 03/11/24 08:55 60 MLS/HR Acetaminophen/ Hydrocodone Bitart 1 tab Q4HP PRN PO 03/10/24 16:15 Ondansetron HCl 4 mg Q4HP PRN IV 03/10/24 16:15 Docusate Sodium 100 mg BIDPRN PRN PO 03/10/24 16:15 Acetaminophen 650 mg Q6HP PRN PO 03/10/24 16:15 Nitroglycerin 0.4 mg Q5MINP PRN SL 03/10/24 16:45 Morphine Sulfate 2 mg Q30M PRN IV 03/10/24 16:45 Diagnostic Test (Pha) 1 strip ACHS 03/10/24 22:00 03/11/24 06:45 1 STRIP Insulin Human Regular ACHS SC 03/10/24 22:00 Dextrose 50 ml UD PRN IV 03/10/24 19:30 Albuterol 2.5 mg Q6HPRN PRN NEB 03/11/24 12:00 03/11/24 12:31 2.5 MG Laboratory Results Laboratory Tests 03/11/24 04:45 Chemistry Test 03/10/24 14:36 03/11/24 04:45 Albumin 4.1 g/dL (3.2-4.8) 4.0 g/dL (3.2-4.8) Calcium Level 9.6 mg/dL (8.7-10.4) 9.5 mg/dL (8.7-10.4) Total Protein 6.4 g/dL (5.7-8.2) 6.6 g/dL (5.7-8.2) Cardiac Markers Test 03/10/24 14:36 B-Type Natriuretic Peptide 103.87 pg/mL (0-100) LFT Test 03/10/24 14:36 03/11/24 04:45 Alanine Aminotransferase (ALT) 16 U/L (7-40) 12 U/L (7-40) Alkaline Phosphatase 98 U/L (46-116) 91 U/L (46-116) Aspartate Amino Transferase (AST) 19 U/L (13-40) 20 U/L (13-40) Total Bilirubin 0.3 mg/dL (0.2-1.0) 0.3 mg/dL (0.2-1.0) Labs and/or images reviewed: Labs reviewed by me, Image(s) reviewed by me Assessment/Plan Assessment/Plan Atypical pneumonia: Rocephin azithromycin albuterol Atrovent, pulmonary consult by Dr. Pinto appreciated Nonproductive cough Generalized weakness Nicotine dependence Check flu test Check Stefanie test History of gout History of rheumatoid arthritis Diabetes Time spent 45 minutes Plan discussed with: Patient My Orders Orders - UZMA MCLAIN MD Procedure Category Date Status Time Covid19 Antigen [facility] LAB 03/11/24 Logged Rapid Influenza A&B LAB 03/11/24 Logged 13:38 Date of Service: Mar 11, 2024 Billing Provider: UZMA MCLAIN MD Common Visit Codes: [id number] INP/OBS CARE(HIGH) UZMA MCLAIN MD Mar 11, 2024 13:40
[2024-03-11] MEDS: HYDROcodone-ACET 5/325MG TAB PO PRN (14:41)
[2024-03-11] MEDS: cefTRIAXone 1GM/50ML D5W 50 ML IV ONE (15:10)
[2024-03-11] MEDS: AZITHROMYCIN 500MG/ 250ML 250 ML IV ONE (15:31)
--- NOTE | 2024-03-11 22:52 | DVHPN2 ---
Progress Note - Dictate Date Seen: Mar 11, 2024 Medical Necessity Reason Pt with a Central, PICC or Fol: No Subjective Patient seen and examined at bedside. Breathing comfortably on room air. Overnight events reviewed. vital signs Vital Sign Date Time Temp Pulse Resp B/P (MAP) Pulse Ox O2 Delivery O2 Flow Rate FiO2 03/11/24 21:25 98.2 95 20 118/63 (81) 95 98.2 03/11/24 12:53 21 03/11/24 12:32 Room Air* 0 medications Current Medications Medications Dose Ordered Sig/Andria Route Start Time Stop Time Status Last Admin Dose Admin Azithromycin 250 ml @ 125 mls/hr DAILY IV 03/11/24 10:00 Cancel Promethazine HCl/ Dextromethorphan 5 ml Q4HP PRN PO 03/10/24 16:15 Famotidine 20 mg DAILY IV 03/11/24 10:00 03/11/24 10:24 20 MG Sodium Chloride 1,000 ml @ 60 mls/hr [id number] IV 03/10/24 16:15 03/11/24 08:55 60 MLS/HR Acetaminophen/ Hydrocodone Bitart 1 tab Q4HP PRN PO 03/10/24 16:15 03/11/24 14:41 1 TAB Ondansetron HCl 4 mg Q4HP PRN IV 03/10/24 16:15 Docusate Sodium 100 mg BIDPRN PRN PO 03/10/24 16:15 Acetaminophen 650 mg Q6HP PRN PO 03/10/24 16:15 Nitroglycerin 0.4 mg Q5MINP PRN SL 03/10/24 16:45 Morphine Sulfate 2 mg Q30M PRN IV 03/10/24 16:45 Diagnostic Test (Pha) 1 strip ACHS 03/10/24 22:00 03/11/24 22:11 1 STRIP Insulin Human Regular ACHS SC 03/10/24 22:00 Dextrose 50 ml UD PRN IV 03/10/24 19:30 Albuterol 2.5 mg Q6HPRN PRN NEB 03/11/24 12:00 03/11/24 12:31 2.5 MG Ceftriaxone Sodium 50 ml @ 100 mls/hr DAILY@09 IV 03/12/24 09:00 Azithromycin 250 ml @ 125 mls/hr DAILY IV 03/12/24 10:00 objective Gen.: Patient lying in bed in no apparent distress. Breathing on room air. Head: Normocephalic, atraumatic. Eyes: EOMI/PERRLA. Ears: Normal hearing. Normal anatomy. Neck/trachea: Trachea midline, supple. Nose: Normal external anatomy. Mouth: Moist mucous membranes. Chest: Decreased air entry bilaterally. No wheezing or rhonchi. Cardiovascular: Positive S1, positive S2. Regular rate and rhythm. Abdomen: Positive bowel sounds in all 4 quadrants. Soft, non-tender, non- distended. : Deferred. Rectal: Deferred. Skin: Warm, dry. Intact. Extremities: 2+ radial pulses bilaterally. No lower extremity edema. Neuro: Awake, alert, oriented x3. No gross motor or sensory deficits. Cranial nerves II through XII intact. Gait not assessed. laboratory and microbiology Laboratory Tests 03/11/24 04:45 Test 03/11/24 04:45 Range/Units Serum Glucose 287 H 74-106 mg/dL Assessment/Plan Impression: Atypical pneumonia Cough, acute Generalized weakness Nicotine dependence Atelectasis Obesity, BMI 31.7 Events: Breathing on room air No respiratory distress. Continue bronchodilators Continue antibiotics Incentive spirometry Pain control Avoid oversedation IV fluids w/ NS at 60 ml/hr. Pepcid for GI prophylaxis. Labs and imaging reviewed. Rest of plan as noted below. Plan: Supplemental oxygen PRN Titrate to keep O2 sats above 92%. CXR reviewed, findings c/w atypical infection versus reactive airways disease. No pleural effusion or pneumothorax. Continue IV antibiotics Antitussive for cough Accu-Cheks for glycemic monitoring IV fluid hydration - NS at 60 ml/hr Smoking cessation discussed for greater than 10 minutes. Monitor renal function. Monitor electrolytes. Supplement as necessary. Monitor ins and outs. GI prophylaxis - Pepcid DVT prophylaxis -SCDs. Prognosis: Guarded given patient's multiple co-morbidities. Rest of plan per hospitalist and other consultants. Thank you, Dileep Randolph DNP, for allowing me to participate in this patient's care. Further recommendations will depend on the patient's clinical course. Please do not hesitate to contact me if you have any questions or concerns. This medical document was created using an electronic medical record system with [email or web address] dictation system. Although these documentations are being carefully reviewed, there may still be some phonetic and typographical changes. The errors are purely typographical, due to imperfection on the software program, and do not reflect any compromise in the patient's medical care. Plan discussed with: Patient, Other (REJI Grace) BREANNE SPAULDING MD Mar 11, 2024 22:52
[2024-03-12] VITALS (13 sets, daily range): BP systolic 122–161; BP diastolic 50–74; PULSE 54–75; RESP 16–20; TEMP 97.7–98.9; O2SAT 90–99
[2024-03-12] MEDS ORDERED: QUET50TA5 PO (00:15)
[2024-03-12] MEDS ORDERED: FLUO60TA7 PO (00:15)
[2024-03-12] MEDS ORDERED: FURO1TAB31 PO (00:15)
[2024-03-12 01:34] LABS: COVID19 ANTIGEN SOFIA FIA NEGATIVE (NEGATIVE); Rapid Influenza B Negative (Negative)
[2024-03-12 01:48] LABS: Rapid Influenza A Positive (Negative)
[2024-03-12] MEDS: cefTRIAXone 1GM/50ML D5W 50 ML IV SCH (09:00)
--- NOTE | 2024-03-12 10:15 | DVHPN2 ---
Reviewed: Care Plan, H&P, Labs, Medications, Previous Orders, Radiology Changes from previous H/P or p: No Changes Eyes: No Pain, No Vision change, No Conjunctivae inflammation, No Eyelid inflammation, No Other, No Redness ENT: No Ear pain, No Ear discharge, No Nose pain, No Nose discharge, No Nose congestion, No Mouth pain, No Mouth swelling, No Throat pain, No Throat swelling, No Other Cardiovascular: No Chest Pain, No Palpitations, No Orthopnea, No Paroxysmal Noc. Dyspnea, No Edema, No Lt Headedness, No Other Respiratory: Cough (Nonproductive); No Dry, No Shortness of breath, No SOB with excertion, No Wheezing, No Hemoptysis, No Pleuritic Pain, No Sputum, No Other Gastrointestinal: No Nausea, No Vomiting, No Abdominal Pain, No Diarrhea, No Constipation, No Melena, No Hematochezia, No Other Genitourinary: No Dysuria, No Frequency, No Incontinence, No Hematuria, No Retention, No Other Musculoskeletal: No other, No neck pain, No shoulder pain, No arm pain, No back pain, No hand pain, No leg pain, No foot pain Skin: No Rash, No Lesions, No Jaundice, No Bruising, No Other Objective Vitals Vital Signs Date Time Temp Pulse Resp B/P (MAP) Pulse Ox O2 Delivery O2 Flow Rate FiO2 03/12/24 09:13 72 18 94 03/12/24 09:07 Room Air 0.0 03/12/24 09:07 21 03/12/24 08:48 98.5 143/65 (91) 98.5 Intake/Output Intake and Output 03/12/24 07:00 Intake Total 1380 ml Output Total 830 ml Balance 550 ml Intake Oral 960 ml IV Total 420 ml Output Urine Total 830 ml # Voids 3 Medications Current Medications Medications Dose Ordered Sig/Andria Route Start Time Stop Time Status Last Admin Dose Admin Azithromycin 250 ml @ 125 mls/hr DAILY IV 03/11/24 10:00 Cancel Promethazine HCl/ Dextromethorphan 5 ml Q4HP PRN PO 03/10/24 16:15 Famotidine 20 mg DAILY IV 03/11/24 10:00 03/11/24 10:24 20 MG Sodium Chloride 1,000 ml @ 60 mls/hr [id number] IV 03/10/24 16:15 03/11/24 23:26 60 MLS/HR Acetaminophen/ Hydrocodone Bitart 1 tab Q4HP PRN PO 03/10/24 16:15 03/11/24 23:49 1 TAB Ondansetron HCl 4 mg Q4HP PRN IV 03/10/24 16:15 Docusate Sodium 100 mg BIDPRN PRN PO 03/10/24 16:15 Acetaminophen 650 mg Q6HP PRN PO 03/10/24 16:15 Nitroglycerin 0.4 mg Q5MINP PRN SL 03/10/24 16:45 Morphine Sulfate 2 mg Q30M PRN IV 03/10/24 16:45 Diagnostic Test (Pha) 1 strip ACHS 03/10/24 22:00 03/11/24 22:11 1 STRIP Insulin Human Regular ACHS SC 03/10/24 22:00 Dextrose 50 ml UD PRN IV 03/10/24 19:30 Albuterol 2.5 mg Q6HPRN PRN NEB 03/11/24 12:00 03/12/24 09:07 2.5 MG Ceftriaxone Sodium 50 ml @ 100 mls/hr DAILY@09 IV 03/12/24 09:00 03/12/24 09:00 100 MLS/HR Azithromycin 250 ml @ 125 mls/hr DAILY IV 03/12/24 10:00 Methylprednisolone Sodium Succinate 40 mg Q8HR IV 03/12/24 14:00 UNV Laboratory Results Laboratory Tests 03/11/24 04:45 Labs and/or images reviewed: Labs reviewed by me, Image(s) reviewed by me Assessment/Plan Assessment/Plan Atypical pneumonia: Rocephin azithromycin albuterol Atrovent, pulmonary consult by Dr. Pinto appreciated 20 mm consolidation left upper lobe. Patient tells me that it is rheumatoid nodule being followed by [facility] at [place], Dr. Pinto aware Nonproductive cough Generalized weakness Nicotine dependence Check flu test Check Stefanie test History of gout History of rheumatoid arthritis Diabetes Chronic current smoker more than 50 years: Counseling Time spent 45 minutes Plan discussed with: Patient My Orders Orders - UZMA MCLAIN MD Procedure Category Date Status Time Ceftriaxone 1gm/50ml PHA 03/12/24 In Process D5w (Rocephin) 09:00 Azithromycin 500mg/ PHA 03/12/24 In Process 250ml (Zithromax 50 10:00 Date of Service: Mar 12, 2024 Billing Provider: UZMA MCLAIN MD Common Visit Codes: [id number] INP/OBS CARE(HIGH) UZMA MCLAIN MD Mar 12, 2024 10:15
[2024-03-12] MEDS: AZITHROMYCIN 500MG/ 250ML 250 ML IV SCH (12:21)
[2024-03-12] MEDS: OSELTAMIVIR 75 MG CAP PO ONE (12:48)
[2024-03-12] MEDS: methylPREDNISolone SOD SUCC 40 MG/ML VL IV SCH (14:30)
[2024-03-12] MEDS: OSELTAMIVIR 30 MG CAP PO SCH (21:11)
--- NOTE | 2024-03-12 22:36 | DVHPN2 ---
Progress Note - Dictate Date Seen: Mar 12, 2024 Medical Necessity Reason Pt with a Central, PICC or Fol: No Subjective Patient seen and examined at bedside. Breathing comfortably on room air. Overnight events reviewed. vital signs Vital Sign Date Time Temp Pulse Resp B/P (MAP) Pulse Ox O2 Delivery O2 Flow Rate FiO2 03/12/24 21:00 98.4 67 20 152/74 (100) 91 98.4 03/12/24 09:07 Room Air 0.0 03/12/24 09:07 21 Total Intake and Output 03/11/24 03/11/24 03/12/24 15:00 23:00 07:00 Intake Total 360 ml 1020 ml Output Total 210 ml 620 ml Balance 150 ml 400 ml medications Current Medications Medications Dose Ordered Sig/Andria Route Start Time Stop Time Status Last Admin Dose Admin Azithromycin 250 ml @ 125 mls/hr DAILY IV 03/11/24 10:00 Cancel Promethazine HCl/ Dextromethorphan 5 ml Q4HP PRN PO 03/10/24 16:15 Famotidine 20 mg DAILY IV 03/11/24 10:00 03/12/24 12:22 20 MG Sodium Chloride 1,000 ml @ 60 mls/hr [id number] IV 03/10/24 16:15 03/11/24 23:26 60 MLS/HR Acetaminophen/ Hydrocodone Bitart 1 tab Q4HP PRN PO 03/10/24 16:15 03/12/24 21:10 1 TAB Ondansetron HCl 4 mg Q4HP PRN IV 03/10/24 16:15 Docusate Sodium 100 mg BIDPRN PRN PO 03/10/24 16:15 Acetaminophen 650 mg Q6HP PRN PO 03/10/24 16:15 Nitroglycerin 0.4 mg Q5MINP PRN SL 03/10/24 16:45 Morphine Sulfate 2 mg Q30M PRN IV 03/10/24 16:45 Diagnostic Test (Pha) 1 strip ACHS 03/10/24 22:00 03/12/24 12:31 1 STRIP Insulin Human Regular ACHS SC 03/10/24 22:00 Dextrose 50 ml UD PRN IV 03/10/24 19:30 Albuterol 2.5 mg Q6HPRN PRN NEB 03/11/24 12:00 03/12/24 21:48 2.5 MG Ceftriaxone Sodium 50 ml @ 100 mls/hr DAILY@09 IV 03/12/24 09:00 03/12/24 09:00 100 MLS/HR Azithromycin 250 ml @ 125 mls/hr DAILY IV 03/12/24 10:00 03/12/24 12:21 125 MLS/HR Methylprednisolone Sodium Succinate 40 mg Q8HR IV 03/12/24 14:00 03/12/24 21:11 40 MG Oseltamivir Phosphate 30 mg BID PO 03/12/24 22:00 03/16/24 21:59 03/12/24 21:11 30 MG objective Gen.: Patient lying in bed in no apparent distress. Breathing on room air. Head: Normocephalic, atraumatic. Eyes: EOMI/PERRLA. Ears: Normal hearing. Normal anatomy. Neck/trachea: Trachea midline, supple. Nose: Normal external anatomy. Mouth: Moist mucous membranes. Chest: Decreased air entry bilaterally. Bilateral wheezing. No rhonchi. Cardiovascular: Positive S1, positive S2. Regular rate and rhythm. Abdomen: Positive bowel sounds in all 4 quadrants. Soft, non-tender, non- distended. : Deferred. Rectal: Deferred. Skin: Warm, dry. Intact. Extremities: 2+ radial pulses bilaterally. No lower extremity edema. Neuro: Awake, alert, oriented x3. No gross motor or sensory deficits. Cranial nerves II through XII intact. Gait not assessed. laboratory and microbiology Laboratory Tests 03/11/24 04:45 Test 03/11/24 04:45 Range/Units Serum Glucose 287 H 74-106 mg/dL Assessment/Plan Impression: Atypical pneumonia Cough, acute Generalized weakness Nicotine dependence Atelectasis Obesity, BMI 31.7 Rheumatoid arthritis Wheezing Pulmonary nodule, BRIANA, 2.1 cm Events: Breathing on room air No respiratory distress. Wheezing on exam today CT chest demonstrated nodular consolidation of BRIANA, 21 mm. Mild chronic interstitial lung disease 2/2 rheumatoid arthritis. Recommend repeat CT chest in 6-8 weeks to assess for interval changes. Tamiflu for influenza. Continue bronchodilators PRN. Continue antibiotics Started Solu-Medrol d/t BRIANA pulmonary nodule. Labs and imaging reviewed. Rest of plan as noted below. Plan: Supplemental oxygen PRN Titrate to keep O2 sats above 92%. CXR reviewed, findings c/w atypical infection versus reactive airways disease. No pleural effusion or pneumothorax. Continue IV antibiotics Antitussive for cough Accu-Cheks for glycemic monitoring IV fluid hydration - NS at 60 ml/hr Smoking cessation discussed for greater than 10 minutes. Monitor renal function. Monitor electrolytes. Supplement as necessary. Monitor ins and outs. Diet and lifestyle modifications for weight reduction Obesity - complicates all care GI prophylaxis - Pepcid DVT prophylaxis -SCDs. Prognosis: Guarded given patient's multiple co-morbidities. Rest of plan per hospitalist and other consultants. Thank you, Dileep Randolph DNP, for allowing me to participate in this patient's care. Further recommendations will depend on the patient's clinical course. Please do not hesitate to contact me if you have any questions or concerns. This medical document was created using an electronic medical record system with [employer] dictation system. Although these documentations are being carefully reviewed, there may still be some phonetic and typographical changes. The errors are purely typographical, due to imperfection on the software program, and do not reflect any compromise in the patient's medical care. Plan discussed with: Patient, Other (REJI Dinero) BREANNE SPAULDING MD Mar 12, 2024 22:36
[2024-03-13] VITALS (9 sets, daily range): BP systolic 141–183; BP diastolic 61–78; PULSE 61–77; RESP 15–19; TEMP 98.1–98.6; O2SAT 92–96
[2024-03-13 09:40] LABS: Hepatitis B Surface Antigen Negative (Negative)
[2024-03-13 10:02] LABS: Hepatitis C Antibody Negative (Negative)
--- NOTE | 2024-03-13 10:02 | DVHPN2 ---
Reviewed: Care Plan, H&P, Labs, Medications, Previous Orders, Radiology Changes from previous H/P or p: No Changes Eyes: No Pain, No Vision change, No Conjunctivae inflammation, No Eyelid inflammation, No Other, No Redness ENT: No Ear pain, No Ear discharge, No Nose pain, No Nose discharge, No Nose congestion, No Mouth pain, No Mouth swelling, No Throat pain, No Throat swelling, No Other Cardiovascular: No Chest Pain, No Palpitations, No Orthopnea, No Paroxysmal Noc. Dyspnea, No Edema, No Lt Headedness, No Other Respiratory: Cough (Nonproductive); No Dry, No Shortness of breath, No SOB with excertion, No Wheezing, No Hemoptysis, No Pleuritic Pain, No Sputum, No Other Gastrointestinal: No Nausea, No Vomiting, No Abdominal Pain, No Diarrhea, No Constipation, No Melena, No Hematochezia, No Other Genitourinary: No Dysuria, No Frequency, No Incontinence, No Hematuria, No Retention, No Other Musculoskeletal: No other, No neck pain, No shoulder pain, No arm pain, No back pain, No hand pain, No leg pain, No foot pain Skin: No Rash, No Lesions, No Jaundice, No Bruising, No Other Objective Vitals Vital Signs Date Time Temp Pulse Resp B/P (MAP) Pulse Ox O2 Delivery O2 Flow Rate FiO2 03/13/24 08:49 98.4 63 16 170/78 (108) 95 98.4 03/12/24 21:48 Room Air* 0 21 Intake/Output Intake and Output 03/13/24 07:00 Intake Total 2183 ml Output Total 700 ml Balance 1483 ml Intake Oral 1523 ml IV Total 660 ml Output Urine Total 700 ml # Voids 2 Medications Current Medications Medications Dose Ordered Sig/Andria Route Start Time Stop Time Status Last Admin Dose Admin Azithromycin 250 ml @ 125 mls/hr DAILY IV 03/11/24 10:00 Cancel Promethazine HCl/ Dextromethorphan 5 ml Q4HP PRN PO 03/10/24 16:15 Famotidine 20 mg DAILY IV 03/11/24 10:00 03/12/24 12:22 20 MG Sodium Chloride 1,000 ml @ 60 mls/hr [id number] IV 03/10/24 16:15 03/11/24 23:26 60 MLS/HR Acetaminophen/ Hydrocodone Bitart 1 tab Q4HP PRN PO 03/10/24 16:15 03/13/24 04:32 1 TAB Ondansetron HCl 4 mg Q4HP PRN IV 03/10/24 16:15 Docusate Sodium 100 mg BIDPRN PRN PO 03/10/24 16:15 Acetaminophen 650 mg Q6HP PRN PO 03/10/24 16:15 Nitroglycerin 0.4 mg Q5MINP PRN SL 03/10/24 16:45 Morphine Sulfate 2 mg Q30M PRN IV 03/10/24 16:45 Diagnostic Test (Pha) 1 strip ACHS 03/10/24 22:00 03/12/24 12:31 1 STRIP Insulin Human Regular ACHS SC 03/10/24 22:00 Dextrose 50 ml UD PRN IV 03/10/24 19:30 Albuterol 2.5 mg Q6HPRN PRN NEB 03/11/24 12:00 03/12/24 21:48 2.5 MG Ceftriaxone Sodium 50 ml @ 100 mls/hr DAILY@09 IV 03/12/24 09:00 03/12/24 09:00 100 MLS/HR Azithromycin 250 ml @ 125 mls/hr DAILY IV 03/12/24 10:00 03/12/24 12:21 125 MLS/HR Methylprednisolone Sodium Succinate 40 mg Q8HR IV 03/12/24 14:00 03/13/24 05:28 40 MG Oseltamivir Phosphate 30 mg BID PO 03/12/24 22:00 03/16/24 21:59 03/12/24 21:11 30 MG Laboratory Results Laboratory Tests 03/11/24 04:45 Labs and/or images reviewed: Labs reviewed by me, Image(s) reviewed by me Assessment/Plan Assessment/Plan Atypical pneumonia: Rocephin azithromycin albuterol Atrovent, pulmonary consult by Dr. Pinto appreciated 20 mm consolidation left upper lobe. 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 Pinto aware Nonproductive cough Generalized weakness Nicotine dependence Flu type A positive: Tamiflu COVID ruled out History of gout History of rheumatoid arthritis Diabetes Chronic current smoker more than 50 years: Counseling Time spent 45 minutes Plan discussed with: Patient Date of Service: Mar 13, 2024 Billing Provider: UZMA MCLAIN MD Common Visit Codes: [id number] INP/OBS CARE(HIGH) UZMA MCLAIN MD Mar 13, 2024 10:02
[2024-03-13] MEDS ORDERED: METH4PAK PO (10:04)
[2024-03-13] MEDS ORDERED: TAMIF30 PO (10:04)
[2024-03-13] MEDS ORDERED: AZIT500T66 PO (10:04)
--- NOTE | 2024-03-13 10:07 | DVHDS2 ---
Discharge Summary Date of Admission Mar 10, 2024 at 16:33 Date of Discharge: Mar 13, 2024 Admitting Diagnosis Cough and shortness of breaths Wounds: None Labs/Diagnostic Data: Laboratory Results Test 03/12/24 05:10 03/12/24 01:00 03/11/24 04:45 03/10/24 14:36 Hepatitis B Surface Antigen Negative (Negative) Influenza Type A Antigen Positive (Negative) Influenza Type B Antigen Negative (Negative) SARS-CoV-2 Antigen (Rapid) Negative (NEGATIVE) White Blood Count 4.0 10^3/uL (4.4-10.8) Red Blood Count 3.99 10^6/uL (4.0-5.20) Hemoglobin 12.6 g/dL (12.2-16.2) Hematocrit 37.2 % (36.0-46.0) Mean Corpuscular Volume 93.2 fL (80.0-100.0) Mean Corpuscular Hemoglobin 31.7 pg (28.0-32.0) Mean Corpuscular Hemoglobin Concent 34.0 g/dL (32.0-36.0) Red Cell Distribution Width 13.5 % (11.8-14.3) Platelet Count 167 10^3/uL (140-450) Mean Platelet Volume 8.1 fL (6.9-10.8) Neutrophils (%) (Auto) 50.3 % (37.0-80.0) Lymphocytes (%) (Auto) 45.5 % (10.0-50.0) Monocytes (%) (Auto) 3.8 % (0.0-12.0) Eosinophils (%) (Auto) 0.0 % (0.0-7.0) Basophils (%) (Auto) 0.4 % (0.0-2.0) Neutrophils # (Auto) 2.0 10 ^3/uL (1.6-8.6) Lymphocytes # (Auto) 1.8 10 ^3/uL (0.4-5.4) Monocytes # (Auto) 0.1 10 ^3/uL (0-1.3) Eosinophils # (Auto) 0 10 ^3/uL (0-0.8) Basophils # (Auto) 0 10 ^3/uL (0-0.2) Nucleated Red Blood Cells 0.3 % Sodium Level 136 mmol/L (136-145) Potassium Level 4.2 mmol/L (3.5-5.1) Chloride Level 102 mmol/L (98-107) Carbon Dioxide Level 27 mmol/L (20-31) Anion Gap 7 (5-15) Blood Urea Nitrogen 14 mg/dL (9-23) Creatinine 1.11 mg/dL (0.550-1.02) Glomerular Filtration Rate Calc 54 mL/min (>90) BUN/Creatinine Ratio 12.6 (10.0-20.0) Serum Glucose 287 mg/dL (74-106) Calcium Level 9.5 mg/dL (8.7-10.4) Total Bilirubin 0.3 mg/dL (0.2-1.0) Aspartate Amino Transferase (AST) 20 U/L (13-40) Alanine Aminotransferase (ALT) 12 U/L (7-40) Alkaline Phosphatase 91 U/L (46-116) Total Protein 6.6 g/dL (5.7-8.2) Albumin 4.0 g/dL (3.2-4.8) Troponin I High Sensitivity 4 ng/L (</=34) B-Type Natriuretic Peptide 103.87 pg/mL (0-100) Other Laboratory Tests 03/11/24 04:45 Brief Hx & Hospital Course: 68-year-old female with a history of smoking gout rheumatoid arthritis diabetes chronic left upper lobe rheumatoid nodule 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 Pinto at the time of discharge patient on room air afebrile with stable vital signs. Discharged home on azithromycin Medrol Dosepak and Tamiflu. She will follow up with the primary Dr. Consults/Reason for consult Pulmonology Dr. Pinto Operations or Procedures None Condition at Discharge: Fair Final Diagnosis/Problems List Atypical pneumonia: Rocephin azithromycin albuterol Atrovent, pulmonary consult by Dr. Pinto appreciated 20 mm consolidation left upper lobe. Patient tells me that it is rheumatoid nodule being followed by banquet prep cook at [place], Dr. Pinto aware Nonproductive cough Generalized weakness Nicotine dependence Flu type A positive: Tamiflu COVID ruled out History of gout History of rheumatoid arthritis Diabetes Chronic current smoker more than 50 years: Counseling Discharge Disposition: Home Discharge Instruct/Medications Diet: Regular Activity: Light activity Follow Up/Referral: Follow up with your primary Dr in one week Resume all previous home meds Medications: Azithromycin Medrol Dosepak Tamiflu Transmitted to [address] (Time Taken for discharge summary 39 minutes) Discharge Statement: "Patient was advised to return to the ER or call 911 if any headaches, dizziness, shortness of breath, chest pain, abdominal pain, bleeding, fevers, or worsening of medical condition. Patient was counseled about treatment plan, medications, possible side effects, patientverbalized understanding. All questions were answered to the best of my ability. This discharge took greater then 30 minutes in planning, reviewing documentation, counseling the patient, and discussing with other team members." ASSESSMENT ASSESSMENT Hospital Course Improved Assessment Atypical pneumonia: Rocephin azithromycin albuterol Atrovent, pulmonary consult by Dr. Pinto appreciated 20 mm consolidation left upper lobe. Patient tells me that it is rheumatoid nodule being followed by banquet prep cook at [place], Dr. Pinto aware Nonproductive cough Generalized weakness Nicotine dependence Flu type A positive: Tamiflu COVID ruled out History of gout History of rheumatoid arthritis Diabetes Chronic current smoker more than 50 years: Counseling Date of Service: Mar 13, 2024 Billing Provider: UZMA MCLAIN MD Common Visit Codes: [id number] DISCH DAY >30min UZMA MCLAIN MD Mar 13, 2024 10:07
[2024-03-13] MEDS: FUROSEMIDE 40 MG/4 ML VIAL IV ONE (10:48)
--- NOTE | 2024-03-13 11:33 | DVHINCON2 ---
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 Past Medical History As per HPI Past Surgical History Knee replacement Allergies: Coded Allergies: Gabapentin (Verified Allergy, Mild, 03/11/24) Pregabalin (Verified Allergy, Mild, 03/11/24) Home Meds Active Scripts Oseltamivir Phosphate (Tamiflu) 30 Mg Cp, 1 CAP PO BID, #10 CAP Prov:UZMA MCLAIN MD 03/13/24 Methylprednisolone (Medrol Dosepak) 4 Mg Cristian, 4 MG PO UD, #21 TAB UAD Prov:UZMA MCLAIN MD 03/13/24 Azithromycin (Azithromycin) 500 Mg Tab, 1 TAB PO DAILY, #7 TAB Prov:UZMA MCLAIN MD 03/13/24 Hydrocodone-Acetaminophen (Hydrocodone Bitartrate/AC 5-325 mg) 1 Tab Tab, 1 TAB PO Q6HPRN, #10 TAB 0 Refills Prov:ROMAIN JONES 02/14/24 Reported Medications Fluoxetine HCl (Fluoxetine) 60 Mg Tab, 60 MG PO, TAB 03/12/24 Furosemide (Lasix) 40 Mg Tab, 40 MG PO DAILY, TAB 03/12/24 Quetiapine Fumerate (Seroquel Xr) 50 Mg Tab, 1 TAB PO QPM, #30 TAB 2 Refills 03/12/24 Current Medications Current Medications Medications (Trade) Dose Ordered Sig/Andria Route PRN Reason Start Time Stop Time Status Last Admin Oseltamivir Phosphate (Tamiflu 30MG Capsule) 30 mg BID PO 03/12/24 22:00 03/16/24 21:59 03/13/24 10:00 Family History: Hypertension G8 FATHER Kidney stones G8 FATHER Malignant neoplasm of breast G8 MOTHER Review of Systems HEENT-denies headache, denies vision changes, no hearing issue, denies neck complaints, denies throat issues Respiratory system-positive cough, denies shortness of breath Cardiovascular system-denies chest pain, denies palpitations Abdomen-denies abdominal pain, denies nausea, denies vomiting, denies constipation or diarrhea Musculoskeletal-denies swelling in the legs, denies pain in the extremities Genitourinary-denies urinary symptoms like dysuria, stream issues Neuro-denies dizziness, denies seizures Psychiatric-denies psychiatric history H&P Exam Vital Signs/I&O Vital Sign Date Time Temp Pulse Resp B/P (MAP) Pulse Ox O2 Delivery O2 Flow Rate FiO2 03/13/24 13:54 98.2 70 18 96 03/13/24 12:31 177/61 (99) 03/13/24 08:00 Room Air* 0 21 Intake and Output 03/12/24 03/13/24 19:00 07:00 Intake Total 1343 ml 840 ml Output Total 700 ml Balance 1343 ml 140 ml Intake Oral 683 ml 840 ml IV Total 660 ml Output Urine Total 700 ml # Voids 2 Physical Exam General-not in any distress HEENT-normocephalic, no icterus, no pallor, neck supple Respiratory-fair air entry bilateral, no rhonchi, no wheeze [id number] heard, no murmurs appreciated Abdominal-soft, nontender, nondistended Musculoskeletal-no pedal edema, no calf tenderness Genitourinary-deferred Neuro-awake alert oriented x3, Psychiatric-not agitated, cooperative, Labs/Diagnostic Data Labs/Diagnostic Data Laboratory Tests Test 03/12/24 05:10 03/12/24 01:00 03/11/24 04:45 03/10/24 14:36 Range/Units Hepatitis B Surface Antigen Negative Negative Hepatitis C Antibody Negative Negative Influenza Type A Antigen Positive Negative Influenza Type B Antigen Negative Negative SARS-CoV-2 Antigen (Rapid) Negative NEGATIVE White Blood Count 4.0 L 4.6 4.4-10.8 10^3/uL Red Blood Count 3.99 L 4.07 4.0-5.20 10^6/uL Hemoglobin 12.6 12.9 12.2-16.2 g/dL Hematocrit 37.2 37.8 36.0-46.0 % Mean Corpuscular Volume 93.2 92.8 80.0-100.0 fL Mean Corpuscular Hemoglobin 31.7 31.7 28.0-32.0 pg Mean Corpuscular Hemoglobin Concent 34.0 34.2 32.0-36.0 g/dL Red Cell Distribution Width 13.5 13.6 11.8-14.3 % Platelet Count 167 174 140-450 10^3/uL Mean Platelet Volume 8.1 8.1 6.9-10.8 fL Neutrophils (%) (Auto) 50.3 62.6 37.0-80.0 % Lymphocytes (%) (Auto) 45.5 27.2 10.0-50.0 % Monocytes (%) (Auto) 3.8 7.7 0.0-12.0 % Eosinophils (%) (Auto) 0.0 1.9 0.0-7.0 % Basophils (%) (Auto) 0.4 0.6 0.0-2.0 % Neutrophils # (Auto) 2.0 2.9 1.6-8.6 10 ^3/uL Lymphocytes # (Auto) 1.8 1.3 0.4-5.4 10 ^3/uL Monocytes # (Auto) 0.1 0.4 0-1.3 10 ^3/uL Eosinophils # (Auto) 0 0.1 0-0.8 10 ^3/uL Basophils # (Auto) 0 0 0-0.2 10 ^3/uL Nucleated Red Blood Cells 0.3 0.2 % Sodium Level 136 139 136-145 mmol/L Potassium Level 4.2 4.2 3.5-5.1 mmol/L Chloride Level 102 103 98-107 mmol/L Carbon Dioxide Level 27 30 20-31 mmol/L Anion Gap 7 6 5-15 Blood Urea Nitrogen 14 15 9-23 mg/dL Creatinine 1.11 H 1.03 H 0.550-1.02 mg/dL Glomerular Filtration Rate Calc 54 59 >90 mL/min BUN/Creatinine Ratio 12.6 14.6 10.0-20.0 Serum Glucose 287 H 124 H 74-106 mg/dL Calcium Level 9.5 9.6 8.7-10.4 mg/dL Total Bilirubin 0.3 0.3 0.2-1.0 mg/dL Aspartate Amino Transferase (AST) 20 19 13-40 U/L Alanine Aminotransferase (ALT) 12 16 7-40 U/L Alkaline Phosphatase 91 98 46-116 U/L Total Protein 6.6 6.4 5.7-8.2 g/dL Albumin 4.0 4.1 3.2-4.8 g/dL Troponin I High Sensitivity 4 </=34 ng/L B-Type Natriuretic Peptide 103.87 0-100 pg/mL Assessment Chronic kidney disease 3A Influenza Type 1 diabetes possible underlying diabetic nephropathy Rheumatoid arthritis Gout Recommendations Kidney function has been stable for several years Recommend outpatient follow-up for Chronic kidney disease I will this sign off this case please reconsult if needed Plan discussed with: Other ALISTAIR STERLING MD Mar 13, 2024 11:33
--- NOTE | 2024-03-13 22:08 | DVHPN2 ---
Progress Note - Dictate Date Seen: Mar 13, 2024 Medical Necessity Reason Pt with a Central, PICC or Fol: No Subjective Patient seen and examined at bedside. Breathing comfortably on room air. Overnight events reviewed. vital signs Vital Sign Date Time Temp Pulse Resp B/P (MAP) Pulse Ox O2 Delivery O2 Flow Rate FiO2 03/13/24 13:54 98.2 70 18 96 03/13/24 12:31 177/61 (99) 03/13/24 10:00 Room Air* 0 21 Total Intake and Output 03/12/24 03/12/24 03/13/24 15:00 23:00 07:00 Intake Total 534 ml 809 ml 840 ml Output Total 700 ml Balance 534 ml 809 ml 140 ml medications Current Medications Medications Dose Ordered Sig/Andria Route Start Time Stop Time Status Last Admin Dose Admin Azithromycin 250 ml @ 125 mls/hr DAILY IV 03/11/24 10:00 Cancel objective Gen.: Patient lying in bed in no apparent distress. Breathing on room air. Head: Normocephalic, atraumatic. Eyes: EOMI/PERRLA. Ears: Normal hearing. Normal anatomy. Neck/trachea: Trachea midline, supple. Nose: Normal external anatomy. Mouth: Moist mucous membranes. Chest: Decreased air entry bilaterally. Bilateral wheezing. No rhonchi. Cardiovascular: Positive S1, positive S2. Regular rate and rhythm. Abdomen: Positive bowel sounds in all 4 quadrants. Soft, non-tender, non- distended. : Deferred. Rectal: Deferred. Skin: Warm, dry. Intact. Extremities: 2+ radial pulses bilaterally. No lower extremity edema. Neuro: Awake, alert, oriented x3. No gross motor or sensory deficits. Cranial nerves II through XII intact. Gait not assessed. laboratory and microbiology Laboratory Tests 03/11/24 04:45 Test 03/11/24 04:45 Range/Units Serum Glucose 287 H 74-106 mg/dL Assessment/Plan Impression: Atypical pneumonia Cough, acute Generalized weakness Nicotine dependence Atelectasis Obesity, BMI 31.7 Rheumatoid arthritis Wheezing Pulmonary nodule, BRIANA, 2.1 cm Events: Breathing on room air No respiratory distress. Wheezing, improving. CT chest demonstrated nodular consolidation of BRIANA, 21 mm. Mild chronic interstitial lung disease 2/2 rheumatoid arthritis. Recommend repeat CT chest in 6-8 weeks to assess for interval changes. Tamiflu for influenza. Continue bronchodilators PRN. Continue antibiotics Continue steroids - Solu-Medrol d/t BRIANA pulmonary nodule. Patient is stable for discharge from the pulmonary standpoint. Follow up in 1-2 weeks [facility]. Labs and imaging reviewed. Rest of plan as noted below. Plan: Supplemental oxygen PRN Titrate to keep O2 sats above 92%. CXR reviewed, findings c/w atypical infection versus reactive airways disease. No pleural effusion or pneumothorax. Continue IV antibiotics Antitussive for cough Accu-Cheks for glycemic monitoring IV fluid hydration - NS at 60 ml/hr Smoking cessation discussed for greater than 10 minutes. Monitor renal function. Monitor electrolytes. Supplement as necessary. Monitor ins and outs. Diet and lifestyle modifications for weight reduction Obesity - complicates all care GI prophylaxis - Pepcid DVT prophylaxis -SCDs. Prognosis: Guarded given patient's multiple co-morbidities. Rest of plan per hospitalist and other consultants. Thank you, Dileep Randolph DNP, for allowing me to participate in this patient's care. Further recommendations will depend on the patient's clinical course. Please do not hesitate to contact me if you have any questions or concerns. This medical document was created using an electronic medical record system with [employer] dictation system. Although these documentations are being carefully reviewed, there may still be some phonetic and typographical changes. The errors are purely typographical, due to imperfection on the software program, and do not reflect any compromise in the patient's medical care. Plan discussed with: Patient, Other (REJI Corea) BREANNE SPAULDING MD Mar 13, 2024 22:07
== END 2024-03-13 16:20 | disposition home or self-care (01) | DRG 178 ==
LOC: ER 13:38 → EDBD 13:38 → TELE 16:33 → TELE-EAST 03-11 22:55
PROVIDERS: ADMIT Nurse Practitioner Family; ATTEND Family Medicine
DX: J15.69 Pneumonia due to other Gram-negative bacteria (principal); J98.11 Atelectasis; J10.00 Influenza due to other identified influenza virus with unspecified type of pneumonia; Z68.31 Body mass index [BMI] 31.0-31.9, adult; E66.9 Obesity, unspecified; F17.210 Nicotine dependence, cigarettes, uncomplicated; M10.9 Gout, unspecified; J15.9 Unspecified bacterial pneumonia; Z20.822 Contact with and (suspected) exposure to COVID-19; N18.31 Chronic kidney disease, stage 3a; I12.9 Hypertensive chronic kidney disease with stage 1 through stage 4 chronic kidney disease, or unspecified chronic kidney disease; E10.22 Type 1 diabetes mellitus with diabetic chronic kidney disease; M06.9 Rheumatoid arthritis, unspecified; M06.30 Rheumatoid nodule, unspecified site; Z90.710 Acquired absence of both cervix and uterus; Z88.8 Allergy status to other drugs, medicaments and biological substances; Z80.3 Family history of malignant neoplasm of breast; Z82.49 Family history of ischemic heart disease and other diseases of the circulatory system; Z79.4 Long term (current) use of insulin
CPT/HCPCS: 36415; 71046; 71250; 80053; 83880; 84484; 85025; 86803; 87340; 87426; 87804; 94640; 96374; 96375; G0378; G9035; J0696; J1100; J3490

== ENCOUNTER 2024-04-19 22:55 | Emergency (ER) | payer OTHER, MEDICAID ==
[~2024-04-19] VITALS: Ht 165.1 cm; Wt 91.0 kg
[~2024-04-19 22:55] MED LIST changes: -AMOX875T4 PO; +AZIT500T66 PO; +FLUO60TA7 PO; +FURO1TAB31 PO; +METH4PAK PO; +QUET50TA5 PO; +TAMIF30 PO
--- NOTE | 2024-04-19 23:31 | ED.PDOC ---
Back pain HPI HPI Comments THIS IS A 69-YEAR-OLD FEMALE PRESENTS TO THE ED VIA AMBULANCE CHIEF COMPLAINT RIGHT WRIST PAIN STATUS POST FALL. STATES SHE SLIPPED FELL DOWN ON HER RIGHT SIDE TRIED TO CATCH HERSELF WITH HER RIGHT HAND HYPERFLEXED HER RIGHT HAND NOSE COMPLAINING OF RIGHT WRIST PAIN SWELLING. SHE RATES PAIN 10/10 ON PAIN SCALE THROBBING IN NATURE SHARP SHOOTING PAIN UP HER RIGHT FOREARM TO HER ELBOW. HE DENIES ANY LOC, NECK PAIN, HEADACHE, BACK PAIN, CHEST PAIN, SHORTNESS OF BREATH, DIFFICULTY BREATHING, NUMBNESS OR WEAKNESS. Chief Complaint: Upper Extremity Time Seen by MD: 23:16 Primary Care Provider: GIL Diaz Notes: Nurses Notes, Label Operator Notes, Medications, Allergies Allergies: Coded Allergies: Gabapentin (Verified Allergy, Mild, 03/11/24) Pregabalin (Verified Allergy, Mild, 03/11/24) Home Meds Active Scripts Oseltamivir Phosphate (Tamiflu) 30 Mg Cp, 1 CAP PO BID, #10 CAP Prov:UZMA MCLAIN MD 03/13/24 Methylprednisolone (Medrol Dosepak) 4 Mg Cristian, 4 MG PO UD, #21 TAB UAD Prov:UZMA MCLAIN MD 03/13/24 Azithromycin (Azithromycin) 500 Mg Tab, 1 TAB PO DAILY, #7 TAB Prov:UZMA MCLAIN MD 03/13/24 Hydrocodone-Acetaminophen (Hydrocodone Bitartrate/AC 5-325 mg) 1 Tab Tab, 1 TAB PO Q6HPRN, #10 TAB 0 Refills Prov:ROMAIN JONES 02/14/24 Reported Medications Fluoxetine HCl (Fluoxetine) 60 Mg Tab, 60 MG PO, TAB 03/12/24 Furosemide (Lasix) 40 Mg Tab, 40 MG PO DAILY, TAB 03/12/24 Quetiapine Fumerate (Seroquel Xr) 50 Mg Tab, 1 TAB PO QPM, #30 TAB 2 Refills 03/12/24 Information Source: Patient, Emergency Med Personnel Mode of Arrival: EMS Past Medical History PAST MEDICAL HISTORY: Arthritis Surgical History: Hysterectomy Family History Family History: Reviewed,noncontributory to illness, Unknown Social History Smoker: Cigarettes, Less Than 1 Pack/Day Alcohol: Denies ETOH Use Drugs: Denies Drug Use Lives In: Home Constitutional: denies: chills, diaphoresis, fatigue, fever, malaise, sweats, weakness, others EENTM: denies: blurred vision, double vision, ear bleeding, ear discharge, ear drainage, ear pain, ear ringing, eye pain, eye redness, hearing loss, mouth pain, mouth swelling, nasal discharge, nose bleeding, nose congestion, nose pain, photophobia, tearing, throat pain, throat swelling, voice changes, others Respiratory: denies: cough, hemoptysis, orthopnea, SOB at rest, shortness of breath, SOB with excertion, stridor, wheezing, others Cardiovascular: denies: chest pain, dizzy spells, diaphoresis, Dyspnea on exertion, edema, irregular heart beat, left arm pain, lightheadedness, palp itations, PND, syncope, others Gastrointestinal: denies: abdomen distended, abdominal pain, blood streaked bowels, constipated, diarrhea, dysphagia, difficulty swallowing, hematemesis, melena, nausea, poor appetite, poor fluid intake, rectal bleeding, rectal pain, vomiting, others Genitourinary: denies: abnormal vagina bleeding, burning, dyspareunia, dysuria, flank pain, frequency, hematuria, incontinence, pain, , vagina discharge, urgency, others Neurological: denies: dizziness, fainting, headache, left sided numbness, left sided weakness, numbness, paresthesia, pre-existing deficit, right sided numbness, right sided weakness, seizure, speech problems, tingling, tremors, weakness, others Musculoskeletal: reports: others (RIGHT WRIST PAIN, SWELLING AND INJURED); denies: back pain, gout, joint pain, joint swelling, muscle pain, muscle stiffness, neck pain Integumetry: denies: bruises, change in color, change in hair/nails, dryness, laceration, lesions, lumps, rash, wounds, others Allergic/Immunocompromised: denies: Difficulty Healing, Frequent Infections, Hives, Itching, others Hematologic/Lymphatic: denies: anemia, blood clots, easy bleeding, easy bruising, swollen glands, others Endocrine: denies: excessive hunger, excessive sweating, excessive thirst, excessive urination, flushing, intolerance to cold, intolerance to heat, unexplained weight gain, unexplained weight loss, others Psychiatric: denies: anxiety, bipolar disorder, depression, hopeless, panic disorder, schizophrenia, sleepless, suicidal, others Physical Exam General Appearance: No Apparent Distress, Normal HEENT: Normal ENT Inspection, Pharynx Normal, TMs Normal Neck: Full Range of Motion, Non-Tender Respiratory: Chest Non-Tender, Lungs Clear, No Accessory Muscle Use, No Respiratory Distress, Normal Breath Sounds Cardiovascular: No Edema, No JVD, No Murmur, No Gallop, Normal Peripheral Pulses, Regular Rate/Rhythm Breast Exam: Deferred Gastrointestinal: Non Tender, Soft Genitalia: Deferred Pelvic: Deferred Rectal: Deferred Extremities: Normal capillary refill, Normal inspection, Normal range of motion, Non-tender, No pedal edema Musculoskeletal : Location: Right Extremity Location: Wrist (TENDERNESS PALPATED OVER POSTERIOR RADIAL ASPECT OF RIGHT WRIST. MILD TO MODERATE EDEMA STRENGTH SENSORY MOTION INTACT POSITIVE RADIAL PULSE NO NOTED ABRASIONS LESIONS OR LACERATIONS.) Apperance: Normal Neurologic: Alert, engineering project manager II-XII nml as Tested, No Motor Deficits, Normal Affect, Normal Mood, No Sensory Deficits Cerebellar Function: Normal Reflexes: Normal Skin: Dry, Normal Color, Warm Lymphatic: No Adenopathy Was a procedure done? Was a procedure done?: No Back Pain Differential Dx Differential Diagnosis: Fracture, Musculoskeletal Pain X-Ray, Labs, Meds, VS Vital Signs Date Time Temp Pulse Resp B/P (MAP) Pulse Ox O2 Delivery O2 Flow Rate FiO2 04/20/24 01:22 67 17 158/64 04/20/24 00:45 90 20 98 Room Air 04/20/24 00:45 98.1 90 20 151/82 (105) 98 98.1 04/20/24 00:37 90 20 151/82 04/19/24 22:55 98.1 114 18 181/83 (115) 99 Current Medications Medications (Trade) Dose Ordered Sig/Andria Route Start Time Stop Time Status Last Admin Acetaminophen/ Hydrocodone Bitart ([place] 5/325MG Tab) 1 tab ONCE ONCE PO 04/19/24 23:45 04/19/24 23:46 DC 04/19/24 23:44 Morphine Sulfate 1 mg ONCE ONCE IM 04/20/24 00:30 04/20/24 00:31 DC 04/20/24 00:37 X-Ray, Labs, Meds, VS Comment WRIST XRAY IMPRESSION: 1. Impacted transversely oriented fracture of the distal radius metaphysis. 2. Ulnar styloid avulsion fracture. 3. 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 PATIENT GIVEN NORCO 5 MG P.O. WITHOUT ANY IMPROVEMENT IN PAIN. PATIENT GIVEN MORPHINE 1 MG IM REPORTS 4/10 PAIN ON PAIN SCALE. Time of 1ST Reevaluation: 01:52 Reevaluation 1ST: Improved Patient Education/Counseling: Diagnosis, Treatment, Prognosis, Need For Follow Up Family Education/Counseling: No Family Present Departure 1 Departure Time of Disposition: 01:52 Impression: Primary Impression: Fracture of radius near wrist Qualified Codes: S52.501A - Unspecified fracture of the lower end of right radius, initial encounter for closed fracture Additional Impression: Fracture of right ulnar styloid Qualified Codes: S52.614A - Nondisplaced fracture of right ulna styloid process, initial encounter for closed fracture Disposition: 01 HOME / SELF CARE / HOMELESS Condition: Stable Critical Care Note Critical Care Time?: No Stability Stability form required: ENRIQUE Engle Apr 19, 2024 23:31
[2024-04-19] MEDS: HYDROcodone-ACET 5/325MG TAB PO ONE (23:44)
[2024-04-20] MEDS: MORPHINE SULFATE INJ 2 MG/ml SYRG IM ONE (00:37)
[2024-04-20 00:45] VITALS: TEMP 98.1; O2SAT 98
--- NOTE | 2024-04-20 01:12 | DVH ---
CLINICAL HISTORY: WRIST INJURY TECHNIQUE: 3 views of the right wrist and forearm were obtained WID: COMPARISON: None FINDINGS: There is an impacted transversely oriented fracture of the distal radius metadiaphysis. There is an u lnar styloid avulsion fracture. Slight bony demineralization. Alignment is maintained. 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 Calcified atherosclerosis. IMPRESSION: 1. Impacted transversely oriented fracture of the distal radius metaphysis. 2. Ulnar styloid avulsion fracture. 3. 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
[2024-04-20 01:22] VITALS: BP 158/64; PULSE 67; RESP 17
[2024-04-20] MEDS ORDERED: HYDR-4902 PO (01:55)
== END 2024-04-20 02:04 | disposition home or self-care (01) ==
LOC: EDBD 22:55 → ER 22:55
DX: S52.501A Unspecified fracture of the lower end of right radius, initial encounter for closed fracture (principal); S52.614A Nondisplaced fracture of right ulna styloid process, initial encounter for closed fracture; F17.210 Nicotine dependence, cigarettes, uncomplicated; W01.0XXA Fall on same level from slipping, tripping and stumbling without subsequent striking against object, initial encounter; Z79.899 Other long term (current) drug therapy; Z88.8 Allergy status to other drugs, medicaments and biological substances; Z90.710 Acquired absence of both cervix and uterus
CPT/HCPCS: 29125; 73110; 96372; 99283; J2270